=== PATIENT | male | born 1975 | race Caucasian/White ===

== ENCOUNTER 2018-03-25 08:53 | Emergency (ER) | payer OTHER ==
[2018-03-25 09:07] VITALS: RESP 18; O2SAT 98
[2018-03-25] MEDS ORDERED: Sodium Chloride 0.9% 1,000 ML IV ONE (09:36)
[2018-03-25 09:48] LABS: URINE BILIRUBIN NEGATIVE (NEGATIVE); URINE BLOOD NEGATIVE (NEGATIVE); URINE CLARITY Clear (Clear); URINE COLOR Yellow (YELLOW); URINE GLUCOSE (UA) NORMAL (Normal); URINE LEUKOCYTE ESTERASE NEG Leu/uL (Negative); URINE PROTEIN NEGATIVE (NEGATIVE); URINE UROBILINOGEN NORMAL mg/dL (0.2-1.0)
[2018-03-25] MEDS ORDERED: Sodium Chloride 0.9% 1,000 ML ONE (09:49)
[2018-03-25 09:57] LABS: BASO % 0.8 % (0.0-2.0); EOS # 0.1 K/uL (0.0-0.7); HEMOGLOBIN 13.4 g/dL (12.0-18.0); LYMPH # 1.3 K/uL (1.0-4.3); LYMPH % 22.9 % (20.0-40.0); MEAN CELL VOLUME 87.7 fL (80.0-94.0); MEAN CORPUSCULAR HEMOGLOBIN 30.4 pg (27.0-31.0); MEAN CORPUSCULAR HGB CONC 34.6 g/dL (33.0-37.0); MEAN PLATELET VOLUME 7.3 fL (7.2-11.7); MONO # 0.3 K/uL (0.0-0.8); MONO % 5.3 % (0.0-10.0); NEUT # 4.1 K/uL (1.8-7.0); RBC 4.4 Mil/uL (4.40-5.90); RED CELL DISTRIBUTION WIDTH 12.7 % (11.5-14.5); WHITE BLOOD COUNT 5.8 K/uL (4.8-10.8)
[2018-03-25 10:14] LABS: ALB/GLOB RATIO 1.1 (1.0-2.1); ALBUMIN 4.4 g/dL (3.5-5.0); ALT/SGPT 41 U/L (21-72); AST/SGOT 31 U/L (17-59); BLOOD UREA NITROGEN 9 mg/dL (9-20); CALCIUM 9.6 mg/dl (8.6-10.4); GFR AFRICAN-AMERICAN > 60; GFR NON-AFRICAN AMERICAN > 60
--- NOTE | 2018-03-25 10:22 | C.PDOC ---
History Of Present Illness 42 y/o male presents to ED with c/o penile foreskin swelling for 5 days after intercourse. Patient states symptoms first began as skin sticking together and after 2nd intercourse area was involuted and skin was swollen closing urethra. Patient states he is able to urinate but has to force it and reports pain when attempting to retract foreskin. Patient denies fever, chills, abdominal pain, distention or any other complaints at this time. Time Seen by Provider: 03/25/18 09:08 Chief Complaint (Nursing): Male Genitourinary History Per: Patient History/Exam Limitations: no limitations Onset/Duration Of Symptoms: Days Current Symptoms Are (Timing): Still Present Quality Of Discomfort: "Pain" Past Medical History Reviewed: Historical Data, Nursing Documentation, Vital Signs Vital Signs: Last Vital Signs Temp 98.1 F 03/25/18 11:21 Pulse 77 03/25/18 11:21 Resp 18 03/25/18 11:21 BP 120/74 03/25/18 11:21 Pulse Ox 98 03/25/18 12:17 - Medical History PMH: No Chronic Diseases Surgical History: No Surg Hx - [facility] Procedures CLOSURE SKIN & SUBCUTANEOUS NEC (06/14/14) TETANUS TOXOID ADMINIST (06/14/14) Family History: States: No Known Family Hx - Social History Hx Tobacco Use: No Hx Alcohol Use: No Hx Substance Use: No - Immunization History Hx Tetanus Toxoid Vaccination: No Hx Influenza Vaccination: No Hx Pneumococcal Vaccination: No Review Of Systems Constitutional: Negative for: Fever, Chills Gastrointestinal: Negative for: Nausea, Vomiting, Abdominal Pain Genitourinary: Positive for: Penile Pain. Negative for: Hematuria, Penile Discharge Skin: Negative for: Rash Physical Exam - Physical Exam Appears: Non-toxic, No Acute Distress Skin: Warm, Dry, No Rash Head: Atraumatic, Normacephalic Eye(s): bilateral: Normal Inspection Oral Mucosa: Moist Male Genital: No Testicular Tenderness, No Testicular Swelling, No Inguinal Swelling, No Scrotal Swelling, Other (foreskin enveloped over glance, unable to retract. Areas of induration noted. ) Neurological/Psych: Oriented x3, Normal Speech ED Course And Treatment - Laboratory Results Result Diagrams: 03/25/18 09:53 03/25/18 09:53 O2 Sat by Pulse Oximetry: 98 (RA) Pulse Ox Interpretation: Normal Disposition Discussed With : Rayo Ayers Counseled Patient/Family Regarding: Studies Performed, Diagnosis, Need For Followup - Disposition Referrals: Rayo Ayers MD [Staff Provider] - Disposition: HOME/ ROUTINE Disposition Time: 12:17 Condition: STABLE Prescriptions: Ciprofloxacin [Cipro] 1 tab PO BID #14 tab Ibuprofen [Motrin] 600 mg PO TID #15 tab Forms: [facility] (Faroese), Gen Discharge Inst Faroese - POA Present On Arrival: None - Clinical Impression Clinical Impression: Foreskin inflammation - Scribe Statement The provider has reviewed the documentation as recorded by the Scribe Vel Townsend All medical record entries made by the Scribe were at my direction and personally dictated by me. I have reviewed the chart and agree that the record accurately reflects my personal performance of the history, physical exam, medical decision making, and the department course for this patient. I have also personally directed, reviewed, and agree with the discharge instructions and disposition.
[2018-03-25 11:22] VITALS: BP 120/74; PULSE 77; TEMP 98.1
[2018-03-25] MEDS ORDERED: cefTRIAXone IV 1 gm in Dextros 50 ML IVPB ONE ×2 (12:10→12:22)
[2018-03-25] MEDS ORDERED: Ciprofloxacin 400mg/200ml D5W 400 MG/200 ML BAG IVPB STA (12:10)
== END 2018-03-25 13:58 | disposition home or self-care (01) ==
LOC: C.ER 08:53
DX: N48.29 Other inflammatory disorders of penis (principal)
CPT/HCPCS: 80053; 81001; 85025; 87086; 96361; 96365; 96367; 99284; J0696; J0744; J7030

== ENCOUNTER 2018-04-10 16:01 | Emergency (ER) | payer OTHER ==
[2018-04-10 16:29] VITALS: RESP 18
--- NOTE | 2018-04-10 16:43 | C.PDOC ---
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 He reports some bodyaches and malaise. Denies other drug use. Patient also complaints of persistent foreskin swelling and limited full retraction. Patient was seen on 03/20/18 for the same complaint and states she has been calling for a referral "but they don't merchandise pickup/receiving associate or respond". Patient states he is able to urinate without any difficulty. REQUESTING CRYSTAL METH DETOX. LAST USE YEST. BODYACHES, MALAISE. NO OTHER DRUG USE ALSO CO PERSIST FORESKIN SWELLING, LIMITED FULL RETRACTION. SEEN 03/20 FOR SAME BUT STATES HAS BEEN CALLING REFERRAL "BUT THEY DONT TOOL SETTER APPRENTICE OR RESPOND". PS ABLE TO URINATE WO DIFF EXAM MILD DIST PSYCH CALM COOPERATIVE NO ACUTE INTOX, MILD ANXIETY. 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 NO ERYTHEMA, LESIONS, DC REMAINDER NEG Time Seen by Provider: 04/10/18 16:40 Chief Complaint (Nursing): Substance Abuse History Per: Patient History/Exam Limitations: no limitations Onset/Duration Of Symptoms: Days Current Symptoms Are (Timing): Still Present Suicide/Self Injury Attempted (Context): None Involuntary Hold By: None Recent travel outside of the [place]: No Past Medical History Reviewed: Historical Data, Nursing Documentation, Vital Signs Vital Signs: Last Vital Signs Temp 98.4 F 04/10/18 17:01 Pulse 73 04/10/18 17:01 Resp 18 04/10/18 17:01 BP 135/90 04/10/18 17:01 Pulse Ox 98 04/10/18 17:01 - [facility] Procedures CLOSURE SKIN & SUBCUTANEOUS NEC (06/14/14) TETANUS TOXOID ADMINIST (06/14/14) Family History: States: Unknown Family Hx - Social History Hx Tobacco Use: No Hx Alcohol Use: No Hx Substance Use: Yes - Immunization History Hx Tetanus Toxoid Vaccination: No Hx Influenza Vaccination: No Hx Pneumococcal Vaccination: No Review Of Systems Constitutional: Positive for: Malaise, Other (Bodyaches) Genitourinary: Positive for: Other (Foreskin swelling and limited retraction) Physical Exam - Physical Exam Appears: Non-toxic, Other (Mild distress, calm, cooperative, no acute intoxication, mild anxiety. No SI/SA or active psychosis) Skin: Normal Color, Warm, Dry Head: Atraumatic, Normacephalic Eye(s): bilateral: Normal Inspection Oral Mucosa: Moist Chest: Symmetrical, No Tenderness Cardiovascular: Rhythm Regular Respiratory: Normal Breath Sounds, No Rales, No Rhonchi, No Wheezing Gastrointestinal/Abdominal: Soft, No Tenderness Back: No CVA Tenderness Male Genital: Other ( RN Dann loan consultant: Foreskin edema, partial retraction with glans and urethra visualized. No erythema, lesions, or discharge) Neurological/Psych: Oriented x3, Normal Speech ED Course And Treatment ECG: Interpreted By Me ECG Rhythm: Sinus Rhythm ECG Interpretation: Normal Rate From EC O2 Sat by Pulse Oximetry: 96 Pulse Ox Interpretation: Normal Progress - Data Reviewed Data Reviewed: Old records Disposition Counseled Patient/Family Regarding: Diagnosis, Need For Followup - Disposition Referrals: [facility] [Outside] [facility] [Outside] Albino Montalvo MD [Staff Provider] - Disposition: HOME/ ROUTINE Disposition Time: 16:43 Condition: GOOD Instructions: Polysubstance Abuse (DC) Forms: [employer] (Portuguese) - Clinical Impression Clinical Impression: Drug abuse, Foreskin swelling - Scribe Statement The provider has reviewed the documentation as recorded by the Scribe Mike Brennan All medical record entries made by the Scribe were at my direction and personally dictated by me. I have reviewed the chart and agree that the record accurately reflects my personal performance of the history, physical exam, medical decision making, and the department course for this patient. I have also personally directed, reviewed, and agree with the discharge instructions and disposition.
[2018-04-10 17:02] VITALS: BP 135/90; PULSE 73; TEMP 98.4
[2018-04-10 17:34] VITALS: O2SAT 96
--- NOTE | 2018-04-11 19:29 | CARD ---
APPROVED REPORT Date of service: 04/10/2018 EKG Measurement Heart [id number] <Conclusion> Normal sinus rhythm Normal ECG
== END 2018-04-10 17:33 | disposition home or self-care (01) ==
LOC: C.ER 16:01
DX: F19.10 Other psychoactive substance abuse, uncomplicated (principal); N50.89 Other specified disorders of the male genital organs

== ENCOUNTER 2018-06-07 15:49 | Inpatient (IN) | payer OTHER ==
[2018-06-07 16:47] LABS: BASO # 0.1 K/uL (0.0-0.2); BASO % 0.9 % (0.0-2.0); EOS # 0.1 K/uL (0.0-0.7); EOS % 1.5 % (0.0-4.0); HEMOGLOBIN 14.3 g/dL (12.0-18.0); LYMPH # 1.8 K/uL (1.0-4.3); LYMPH % 27.3 % (20.0-40.0); MEAN CORPUSCULAR HEMOGLOBIN 29.3 pg (27.0-31.0); MEAN CORPUSCULAR HGB CONC 34.4 g/dL (33.0-37.0); MEAN PLATELET VOLUME 7.2 fL (7.2-11.7); MONO # 0.5 K/uL (0.0-0.8); MONO % 7.1 % (0.0-10.0); NEUT # 4.2 K/uL (1.8-7.0); NEUT % 63.2 % (50.0-75.0); RBC 4.88 Mil/uL (4.40-5.90); WHITE BLOOD COUNT 6.6 K/uL (4.8-10.8)
[2018-06-07 16:48] LABS: MEAN CELL VOLUME 85.2 fL (80.0-94.0)
[2018-06-07 17:00] LABS: ALB/GLOB RATIO 1.4 (1.0-2.1); ALBUMIN 5.1 g/dL (3.5-5.0); ALT/SGPT 89 U/L (21-72); AST/SGOT 74 U/L (17-59); BLOOD UREA NITROGEN 12 mg/dL (9-20); GFR NON-AFRICAN AMERICAN > 60
[2018-06-07] MEDS ORDERED: Iohexol 300 100 ML IJ ONE (17:18)
--- NOTE | 2018-06-07 17:49 | C.PDOC ---
History Of Present Illness 42 y/o male c/o lump to upper neck that appeared one week ago and is painful, causing pain lower down in his back, pt admits to injecting himself with steroids on occasion. no fevers. denies numbness, tingling, neck stiffness, upper extremity weakness. . Time Seen by Provider: 06/07/18 16:03 Chief Complaint (Nursing): Back Pain History Per: Patient History/Exam Limitations: no limitations Onset/Duration Of Symptoms: Days (7) Current Symptoms Are (Timing): Still Present Quality Of Discomfort: "Pain" Severity: Moderate Past Medical History Reviewed: Historical Data, Nursing Documentation, Vital Signs Vital Signs: Last Vital Signs Temp 98.2 F 06/07/18 16:00 Pulse 76 06/07/18 16:00 Resp 18 06/07/18 16:00 BP 145/83 06/07/18 16:00 Pulse Ox 98 06/07/18 16:00 - Medical History PMH: Depression Other PMH: piror methamphetamine use, uses im steroids - [facility] Procedures CLOSURE SKIN & SUBCUTANEOUS NEC (06/14/14) TETANUS TOXOID ADMINIST (06/14/14) Family History: States: Unknown Family Hx - Social History Hx Tobacco Use: No Hx Alcohol Use: No Hx Substance Use: Yes - Immunization History Hx Tetanus Toxoid Vaccination: No Hx Influenza Vaccination: No Hx Pneumococcal Vaccination: No Review Of Systems Constitutional: Negative for: Fever, Chills Cardiovascular: Negative for: Chest Pain Respiratory: Negative for: Cough, Shortness of Breath Gastrointestinal: Negative for: Vomiting, Abdominal Pain Musculoskeletal: Positive for: Neck Pain, Back Pain Skin: Negative for: Rash, Bruising Neurological: Negative for: Weakness, Numbness Physical Exam - Physical Exam Appears: Non-toxic, No Acute Distress, Other (heavily muscled in upper body and trapzius area. ) Skin: Warm, Dry, Other (approx 5 cm diameter round well circumscribed firm, tender non mobile mass overlying proximal cervical spine. no overlying erythema, no fluctuance. ) Head: Atraumatic, Normacephalic Neck: Normal ROM, No Decreased ROM, Supple, Other (see skin re mass) Respiratory: No Decreased Breath Sounds, No Accessory Muscle Use, No Wheezing Pulses: Right Radial: Normal, Left Femoral: Normal Neurological/Psych: Oriented x3, Normal Speech, Normal Cognition, Normal Motor, Normal Sensation ED Course And Treatment - Laboratory Results Result Diagrams: 06/07/18 16:41 06/07/18 16:41 O2 Sat by Pulse Oximetry: 98 Medical Decision Making Medical Decision Making: pt with firm mass overlying cervical spine with lower back pain- will get labs and ct scan of spine to eval for abscess. 1844 ct scan reports mass on neck consistent with cellulitis, discussed with dr Mikki Bradford, will admit to his service. Disposition Discussed With Dr.: Nila Baldwin Doctor Will See Patient In The: Hospital - Disposition Disposition: HOSPITALIZED Disposition Time: 18:52 Condition: GOOD Forms: [facility] (Amharic) - Clinical Impression Clinical Impression: Low back pain, Cellulitis of neck
--- NOTE | 2018-06-07 18:14 | CT ---
Date of service: 06/07/2018 PROCEDURE: CT Lumbar Spine without contrast HISTORY: Swelling over cervical spinewith back pain COMPARISON: None available. TECHNIQUE: Axial computed tomography images were obtained of the lumbar spine without the use of intravenous contrast. Coronal and sagittal reformatted images were created and reviewed. Radiation dose: Total exam DLP = 1363.62 mGy-cm. This CT exam was performed using one or more of the following dose reduction techniques: Automated exposure control, adjustment of the mA and/or kV according to patient size, and/or use of iterative reconstruction technique. FINDINGS: VERTEBRAE: Unremarkable. No fracture. Normal alignment. DISCS/SPINAL CANAL/NEURAL FORAMINA: The the the there appears to be underlying mild congenital canal stenosis due to short pedicles. L1-2: Unremarkable. L1-L2: Minor posterior disc space narrowing. L2-L3: Mild posterior disc space narrowing.. Small broad-based bulge of the posterior annulus of. Facets are slightly overgrown. Central canal appears mildly narrowed. Exit foramina are adequate.. L3-L4: There is disc space narrowing more so along the posterior disc margin. There is a moderate-sized broad-based disc bulge larger on the right than left with extension into the proximal inferior margins of both exit foramina. The facet joints also hypertrophic.. They changes collectively result in moderate bilateral and central canal stenosis the the exit foramina are marginal. L4-L5: There is disc space narrowing with vacuum disc phenomena, endplate eburnation and small subchondral cystic changes. Prominent asymmetric osteophytic ridge disc complex larger on the right than left with compression of the ventral surface of the thecal sac more so centrally and to the right than left with mild to moderate central canal stenosis as well. Significant right and mild to moderate left-sided lateral recess stenosis. Facets are mildly hypertrophic and flavum are slightly buckled.. Exit foramina are stenotic bilaterally.. L5-S1: There is mild posterior disc space narrowing. No disc herniation or significant disc bulge. Facets are slightly overgrown. Central canal and exit foramina appear adequate. Partial sacralization left-sided L5 vertebral body. No enhancing lesions. PARASPINAL SOFT TISSUES: Paraspinal soft tissues unremarkable. OTHER FINDINGS: Mild wall thickening of the urinary bladder likely due to incomplete distention and muscular hypertrophy however the possibility of a cystitis not excluded. Clinical correlation recommended. IMPRESSION: No acute fractures. 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 No enhancing lesions.
--- NOTE | 2018-06-07 18:27 | CT ---
Date of service: 06/07/2018 PROCEDURE: CT Cervical Spine without contrast HISTORY: Pain lower spine., eval for abscess, COMPARISON: None available. TECHNIQUE: Axial computed tomography images were obtained of the cervical spine without the use of intravenous contrast. Coronal and sagittal reformatted images were created and reviewed. Radiation dose: Total exam DLP = 627.6 mGy-cm. This CT exam was performed using one or more of the following dose reduction techniques: Automated exposure control, adjustment of the mA and/or kV according to patient size, and/or use of iterative reconstruction technique. FINDINGS: VERTEBRAE: No acute compression fractures no retropulsed fragments. Vertebral bodies exhibit normal stature. Vertebral bodies and facets normally aligned. There are no destructive changes seen of the the adjoining endplates. No evidence of abnormal enhancement within the disc spaces or paraspinal soft tissues to suggest discitis/osteomyelitis. DISCS/SPINAL CANAL/NEURAL FORAMINA: Minor multilevel degenerative spondylosis. At the C5-C6 level, there is mild disc space narrowing more so along the posterior disc margin with small osteophytic ridge disc complex that of minimally flattens the ventral surfaces of the thecal sac and spinal cord more so on the right side. The uncovertebral joints are slightly overgrown. Central canal is slightly narrowed as well at this level. Exit foramina appear adequate on the left and mildly narrowed on the right. At the C4-C5 level, there is relatively adequate disc height. Minimal on broad-based bulging of the posterior annulus is present. Facets are slightly overgrown. Central canal appears marginal to adequate. Similar changes are seen at the C3-C4 level. PARASPINAL SOFT TISSUES: There is subcutaneous infiltration and overlying skin thickening within the mid posterior cervical on soft tissues from approximately the C3 through the C7-T1 level. Findings most likely represent a cellulitis. No drainable fluid collections are identified. No evidence of subcutaneous emphysema. OTHER FINDINGS: None. IMPRESSION: There is mild infiltration the mid posterior subcutaneous tissues from these upper cervical through the upper thoracic region with overlying skin thickening. Findings consistent with a cellulitis however no evidence of drainable fluid-abscess collections or subcutaneous emphysema. There is no evidence to suggest discitis/osteomyelitis. Very minor multilevel degenerative spondylosis as detailed above.
[2018-06-07] MEDS ORDERED: Clindamycin 600mg/50ml NS 600 MG/50 ML BAG IVPB ONE (19:01)
[2018-06-07 21:02] LABS: SQUAMOUS EPITHIAL < 1 /hpf (0-5); URINE BILIRUBIN NEGATIVE (NEGATIVE); URINE CLARITY Clear (Clear); URINE COLOR Yellow (YELLOW); URINE GLUCOSE (UA) NORMAL (Normal); URINE LEUKOCYTE ESTERASE NEG Leu/uL (Negative); URINE PROTEIN NEGATIVE (NEGATIVE)
[2018-06-07 21:11] LABS: URINE BLOOD TRACE (NEGATIVE)
[2018-06-07 21:19] LABS: BARBITURATES, UR NEGATIVE (NEGATIVE); BENZODIAZEPINES, UR NEGATIVE (NEGATIVE); OPIATES, UR NEGATIVE (NEGATIVE); PHENCYCLIDINE, UR NEGATIVE (NEGATIVE)
--- NOTE | 2018-06-07 22:24 | CP.PCM.HP ---
Past Patient History - Past Social History Smoking Status: Never Smoked - MUSCULOSKELETAL/RHEUMATOLOGICAL Hx Falls: No - PSYCHIATRIC Hx Depression: Yes Hx Substance Use: Yes - SURGICAL HISTORY Hx Surgeries: No - ANESTHESIA Hx Anesthesia: No Meds Allergies/Adverse Reactions: Allergies Allergy/AdvReac Type Severity Reaction Status Date / Time No Known Allergies Allergy Verified 06/07/18 16:02 Physical Exam - Constitutional Appears: Well - Head Exam Head Exam: ATRAUMATIC, NORMAL INSPECTION, NORMOCEPHALIC - Eye Exam Eye Exam: EOMI, Normal appearance, PERRL Pupil Exam: NORMAL ACCOMODATION, PERRL - ENT Exam ENT Exam: Mucous Membranes Moist, Normal Exam - Neck Exam Neck exam: Positive for: Normal Inspection - Respiratory Exam Respiratory Exam: Decreased Breath Sounds - Cardiovascular Exam Cardiovascular Exam: REGULAR RHYTHM, +S1, +S2 - GI/Abdominal Exam GI & Abdominal Exam: Diminished Bowel Sounds, Soft - Rectal Exam Rectal Exam: Deferred Results - Vital Signs Recent Vital Signs: Last Vital Signs Temp 98.4 F 06/07/18 20:40 Pulse 76 06/07/18 20:40 Resp 20 06/07/18 20:40 BP 130/78 06/07/18 20:40 Pulse Ox 98 06/07/18 20:40 - Labs Result Diagrams: 06/07/18 16:41 06/07/18 16:41 Labs: Laboratory Results - last 24 hr 06/07/18 06/07/18 06/07/18 16:41 16:41 20:44 WBC 6.6 RBC 4.88 Hgb 14.3 Hct 41.5 MCV 85.2 D MCH 29.3 MCHC 34.4 RDW 14.0 Plt Count 352 MPV 7.2 Neut % (Auto) 63.2 Lymph % (Auto) 27.3 [place] % (Auto) 7.1 Eos % (Auto) 1.5 Baso % (Auto) 0.9 Neut # (Auto) 4.2 Lymph # (Auto) 1.8 [place] # (Auto) 0.5 Eos # (Auto) 0.1 Baso # (Auto) 0.1 Sodium 141 Potassium 4.0 Chloride 100 Carbon Dioxide 27 Anion Gap 18 BUN 12 Creatinine 0.8 Est GFR ( Amer) > 60 Est GFR (Non-Af Amer) > 60 Random Glucose 106 Calcium 10.0 Total Bilirubin 0.9 AST 74 H D ALT 89 H D Alkaline Phosphatase 86 Total Protein 8.9 H Albumin 5.1 H Globulin 3.7 Albumin/Globulin Ratio 1.4 Urine Color Urine Clarity Urine pH Ur Specific [place] Urine Protein Urine Glucose (UA) Urine Ketones Urine Blood Urine Nitrate Urine Bilirubin Urine Urobilinogen Ur Leukocyte Esterase Urine WBC (Auto) Urine RBC (Auto) Ur Squamous Epith Cells Urine Opiates Screen Negative Urine Methadone Screen Negative Ur Barbiturates Screen Negative Ur Phencyclidine Scrn Negative Ur Amphetamines Screen Positive H U Benzodiazepines Scrn Negative U Oth Cocaine Metabols Negative U Cannabinoids Screen Negative 06/07/18 20:44 WBC RBC Hgb Hct MCV MCH MCHC RDW Plt Count MPV Neut % (Auto) Lymph % (Auto) [place] % (Auto) Eos % (Auto) Baso % (Auto) Neut # (Auto) Lymph # (Auto) [place] # (Auto) Eos # (Auto) Baso # (Auto) Sodium Potassium Chloride Carbon Dioxide Anion Gap BUN Creatinine Est GFR ( Amer) Est GFR (Non-Af Amer) Random Glucose Calcium Total Bilirubin AST ALT Alkaline Phosphatase Total Protein Albumin Globulin Albumin/Globulin Ratio Urine Color Yellow Urine Clarity Clear Urine pH 6.0 Ur Specific [place] > 1.060 H Urine Protein Negative Urine Glucose (UA) Normal Urine Ketones Negative Urine Blood Trace H Urine Nitrate Negative Urine Bilirubin Negative Urine Urobilinogen 2.0 Ur Leukocyte Esterase Neg Urine WBC (Auto) 4 Urine RBC (Auto) 2 Ur Squamous Epith Cells < 1 Urine Opiates Screen Urine Methadone Screen Ur Barbiturates Screen Ur Phencyclidine Scrn Ur Amphetamines Screen U Benzodiazepines Scrn U Oth Cocaine Metabols U Cannabinoids Screen
[2018-06-08] MEDS: TAZOBACT IVPB SCH ×3 (00:23→16:00)
[2018-06-08] MEDS: PIPERACILLIN IVPB SCH ×3 (00:23→16:00)
[2018-06-08] MEDS: SODIUM CHLORIDE IVPB SCH ×3 (00:23→16:00)
[2018-06-08] MEDS: Multiple Vitamins Tab PO SCH (10:42)
[2018-06-08] MEDS: Enoxaparin 40 mg Syringe SC SCH (10:47)
--- NOTE | 2018-06-08 15:01 | CP.PCM.PN ---
Subjective - Date & Time of Evaluation Date of Evaluation: 06/08/18 Time of Evaluation: 08:15 - Subjective Subjective: clinically same Objective - Vital Signs/Intake and Output Vital Signs (last 24 hours): Temp Pulse Resp BP Pulse Ox 98.5 F 70 20 134/70 97 06/08/18 08:00 06/08/18 08:00 06/08/18 08:00 06/08/18 08:00 06/08/18 08:00 - Medications Medications: Current Medications Enoxaparin Sodium (Lovenox) 40 mg SC DAILY [facility] Last Admin: 06/08/18 10:47 Dose: 40 mg Gabapentin (Neurontin) 100 mg PO TID [facility] Last Admin: 06/08/18 14:18 Dose: 100 mg Vancomycin HCl 1,000 mg/ (Sodium Chloride) 200 mls @ 166.6 mls/hr IVPB Q12H [facility]; Protocol Last Admin: 06/08/18 13:26 Dose: 166.6 mls/hr Piperacillin Sod/Tazobactam (Sod 3.375 gm/ Sodium Chloride) 50 mls @ 200 mls/hr IVPB Q8H [facility]; Protocol Last Admin: 06/08/18 09:57 Dose: 200 mls/hr Multivitamins (Hexavitamin) 1 tab PO DAILY [facility] Last Admin: 06/08/18 10:42 Dose: 1 tab Sertraline HCl (Zoloft) 50 mg PO HS [facility] Last Admin: 06/07/18 22:41 Dose: 50 mg Tramadol HCl (Ultram) 50 mg PO Q6H PRN PRN Reason: Pain, moderate (4-7) Trazodone HCl (Desyrel) 50 mg PO HS [facility] Last Admin: 06/07/18 22:41 Dose: 50 mg Vitamin B Complex/Folic Acid (Berroca) 1 tab PO DAILY [facility] Last Admin: 06/08/18 10:53 Dose: 1 tab - Labs Labs: 06/07/18 16:41 06/07/18 16:41
[2018-06-09] MEDS: PIPERACILLIN IVPB SCH ×3 (00:28→16:01)
[2018-06-09] MEDS: SODIUM CHLORIDE IVPB SCH ×3 (00:28→16:01)
[2018-06-09] MEDS: TAZOBACT IVPB SCH ×3 (00:28→16:01)
[2018-06-09] MEDS: Multiple Vitamins Tab PO SCH (10:26)
[2018-06-09] MEDS: Enoxaparin 40 mg Syringe SC SCH (10:26)
--- NOTE | 2018-06-09 14:19 | CP.PCM.CON ---
History of Present Illness - History of Present Illness History of Present Illness: CONSULTATION DICTATED NECK SWELLING NO SIGN OF CELLULITIS NO SIGN OF RADICULOPATHY OR MYELOPATHY NO WORK UP IS NEEDED FROM NEURO Past Patient History - Past Social History Smoking Status: Never Smoked - MUSCULOSKELETAL/RHEUMATOLOGICAL Hx Falls: No - PSYCHIATRIC Hx Depression: Yes Hx Substance Use: Yes - SURGICAL HISTORY Hx Surgeries: No - ANESTHESIA Hx Anesthesia: No Meds Allergies/Adverse Reactions: Allergies Allergy/AdvReac Type Severity Reaction Status Date / Time No Known Allergies Allergy Verified 06/07/18 16:02 - Medications Medications: Current Medications Enoxaparin Sodium (Lovenox) 40 mg SC DAILY [facility] Last Admin: 06/09/18 10:26 Dose: 40 mg Gabapentin (Neurontin) 100 mg PO TID [facility] Last Admin: 06/09/18 10:26 Dose: 100 mg Vancomycin HCl 1,000 mg/ (Sodium Chloride) 200 mls @ 166.6 mls/hr IVPB Q12H [facility]; Protocol Last Admin: 06/09/18 11:59 Dose: 166.6 mls/hr Piperacillin Sod/Tazobactam (Sod 3.375 gm/ Sodium Chloride) 50 mls @ 200 mls/hr IVPB Q8H [facility]; Protocol Last Admin: 06/09/18 08:03 Dose: 200 mls/hr Influenza Virus Vaccine (Fluzone Quad [id number]) 60 mcg IM .ONCE ONE Stop: 06/10/18 10:01 Multivitamins (Hexavitamin) 1 tab PO DAILY [facility] Last Admin: 06/09/18 10:26 Dose: 1 tab Pneumococcal Polyvalent Vaccine (Pneumovax 23 Vaccine) 0.5 ml IM .ONCE ONE Stop: 06/10/18 10:01 Sertraline HCl (Zoloft) 50 mg PO HS [facility] Last Admin: 06/08/18 21:43 Dose: 50 mg Tramadol HCl (Ultram) 50 mg PO Q6H PRN PRN Reason: Pain, moderate (4-7) Trazodone HCl (Desyrel) 50 mg PO HS [facility] Last Admin: 06/08/18 21:43 Dose: 50 mg Vitamin B Complex/Folic Acid (Berroca) 1 tab PO DAILY [facility] Last Admin: 06/09/18 10:26 Dose: 1 tab Results - Vital Signs Recent Vital Signs: Last Vital Signs Temp 97.7 F 06/09/18 08:41 Pulse 60 06/09/18 08:41 Resp 20 06/09/18 08:41 BP 111/63 06/09/18 08:41 Pulse Ox 96 06/09/18 08:41 - Labs Result Diagrams: 06/07/18 16:41 06/07/18 16:41
--- NOTE | 2018-06-09 15:28 | CP.PCM.CON ---
History of Present Illness - History of Present Illness History of Present Illness: 42 y/o male c/o lump to upper neck that appeared one week ago and is painful, causing pain lower down in his back, pt admits to injecting himself with steroids on occasion. no fevers. denies numbness, tingling, neck stiffness, upper extremity weakness. . Review of Systems - Constitutional Constitutional: As Per HPI - EENT Eyes: absent: As Per HPI, Blind Spots, Blurred Vision, Change in Vision, Decreased Night Vision, Diplopia, Discharge, Dry Eye, Exophthalmos, Floaters, Irritation, Itchy Eyes, Loss of Peripheral Vision, Pain, Photophobia, Requires Corrective Lenses, Sees Flashes, Spots in Vision, Tunnel Vision, Other Visual Disturbances, Loss of Vision, Other Ears: absent: As Per HPI, Decreased Hearing, Ear Discharge, Ear Pain, Tinnitus, Abnormal Hearing, Disequilibrium, Dizziness, Other Nose/Mouth/Throat: absent: As Per HPI, Epistaxis, Nasal Congestion, Nasal Disc harge, Nasal Obstruction, Nasal Trauma, Nose Pain, Post Nasal Drip, Sinus Pain, Sinus Pressure, Bleeding Gums, Change in Voice, Dental Pain, Dry Mouth, Dysphagia, Halitosis, Hoarsness, Lip Swelling, Mouth Lesions, Mouth Pain, Odynophagia, Sore Throat, Throat Swelling, Tongue Swelling, Facial Pain, Neck Pain, Neck Mass, Other - Cardiovascular Cardiovascular: absent: As Per HPI, Acrocyanosis, Chest Pain, Chest Pain at Rest, Chest Pain with Activity, Claudication, Diaphoresis, Dyspnea, Dyspnea on Exertion, Edema, Irregular Heart Rhythm, Pain Radiating to Arm/Neck/Jaw, Leg Edema, Leg Ulcers, Lightheadedness, Orthopnea, Palpitations, Paroxysmal Nocturnal Dyspnea, Pedal Edema, Radiating Pain, Rapid Heart Rate, Slow Heart Rate, Syncope, Other - Respiratory Respiratory: absent: As Per HPI, Cough, Dyspnea, Hemoptysis, Dyspnea on Exertion, Wheezing, Snoring, Stridor, Pain on Inspiration, Chest Congestion, Excessive Mucous Production, Change in Mucous Color, Pain with Coughing, Other - Gastrointestinal Gastrointestinal: absent: As Per HPI, Abdominal Pain, Belching, Bloating, Change in Bowel Habits, Change in Stool Character, Coffee Ground Emesis, Constipation, Cramping, Diarrhea, Dyspepsia, Dysphagia, Early Satiety, Excessive Flatus, Fecal Incontinence, Heartburn, Hematemesis, Hematochezia, Loose Stools, Melena, Nausea, Odynophagia, Temesmus, Vomiting, Other - Genitourinary Genitourinary: absent: As Per HPI, Change in Urinary Stream, Difficulty Urinating, Dysuria, Flank Pain, Hematuria, Pyuria, Nocturia, Urinary Incontinence, Urinary Frequency, Urinary Hesitance, Urinary Urgency, Voiding Freq/Small Amts, Freq UTI, Hx Renal/Bladder Calculi, Hx /Renal Surgery, Bladder Distension, Other - Musculoskeletal Musculoskeletal: absent: As Per HPI, Abnormal Gait, Arthralgias, Atrophy, Back Pain, Deformity, Joint Swelling, Limited Range of Motion, Loss of Height, Muscle Cramps, Muscle Weakness, Myalgias, Neck Pain, Numbness, Radiating Pain into Limb, Stiffness, Tingling, Other - Integumentary Integumentary: absent: As Per HPI, Acne, Alopecia, Bleeding Lesions, Change in Hair, Change in Nails, Change in Pigmentation, Changing Lesions, Dry Skin, Eryth luci, Furuncle, Hirsutism, Lesions, New Lesions, Non-Healing Lesions, Photosensitivity, Pruritus, Rash, Skin Pain, Skin Ulcer, Sores, Striae, Swelling, Unusual Bruising, Wounds, Jaundice, Other - Neurological Neurological: absent: As Per HPI, Abnormal Gait, Abnormal Hearing, Abnormal Movements, Abnormal Speech, Behavioral Changes, Burning Sensations, Confusion, Convulsions, Disequilibrium, Dizziness, Numbness, Focal Weakness, Frequent Falls, Headaches, Lack of Coordination, Loss of Vision, Memory Loss, Paresthesias, Radicular Pain, Restless Legs, Sensory Deficit, Syncope, Tingling, Tremor, Vertigo, Weakness, Other Visual Disturbances, Other - Psychiatric Psychiatric: absent: As Per HPI, Abnormal Sleep Pattern, Anhedonia, Anxiety, Auditory Hallucinations, Behavioral Changes, Change in Appetite, Change in Libido, Confusion, Depression, Difficulty Concentrating, Hallucinations, Homicidal Ideation, Hopelessness, Irritability, Memory Loss, Mood Swings, Panic Attacks, Paranoia, Suicidal Ideation, Visual Hallucinations, Tactile Hallucinations, Other - Endocrine Endocrine: absent: As Per HPI, Change in Body Appearance, Change in Libido, Cold Intolorance, Deepening of Voice, Excessive Sweating, Fatigue, Flushing, Heat Intolorance, Increase in Ring/Shoe/Hat Size, Palpitations, Polydipsia, Polyphagia, Polyuria, Other - Hematologic/Lymphatic Hematologic: absent: As Per HPI, Easy Bleeding, Easy Bruising, Lymphadenopathy, Other Past Patient History - Past Social History Smoking Status: Never Smoked - MUSCULOSKELETAL/RHEUMATOLOGICAL Hx Falls: No - PSYCHIATRIC Hx Depression: Yes Hx Substance Use: Yes - SURGICAL HISTORY Hx Surgeries: No - ANESTHESIA Hx Anesthesia: No Meds Allergies/Adverse Reactions: Allergies Allergy/AdvReac Type Severity Reaction Status Date / Time No Known Allergies Allergy Verified 06/07/18 16:02 - Medications Medications: Current Medications Enoxaparin Sodium (Lovenox) 40 mg SC DAILY [facility] Last Admin: 06/09/18 10:26 Dose: 40 mg Gabapentin (Neurontin) 100 mg PO TID [facility] Last Admin: 06/09/18 14:26 Dose: 100 mg Vancomycin HCl 1,000 mg/ (Sodium Chloride) 200 mls @ 166.6 mls/hr IVPB Q12H [facility]; Protocol Last Admin: 06/09/18 11:59 Dose: 166.6 mls/hr Piperacillin Sod/Tazobactam (Sod 3.375 gm/ Sodium Chloride) 50 mls @ 200 mls/hr IVPB Q8H [facility]; Protocol Last Admin: 06/09/18 08:03 Dose: 200 mls/hr Influenza Virus Vaccine (Fluzone Quad [id number]) 60 mcg IM .ONCE ONE Stop: 06/10/18 10:01 Multivitamins (Hexavitamin) 1 tab PO DAILY [facility] Last Admin: 06/09/18 10:26 Dose: 1 tab Pneumococcal Polyvalent Vaccine (Pneumovax 23 Vaccine) 0.5 ml IM .ONCE ONE Stop: 06/10/18 10:01 Sertraline HCl (Zoloft) 50 mg PO HS [facility] Last Admin: 06/08/18 21:43 Dose: 50 mg Tramadol HCl (Ultram) 50 mg PO Q6H PRN PRN Reason: Pain, moderate (4-7) Trazodone HCl (Desyrel) 50 mg PO HS [facility] Last Admin: 06/08/18 21:43 Dose: 50 mg Vitamin B Complex/Folic Acid (Berroca) 1 tab PO DAILY [facility] Last Admin: 06/09/18 10:26 Dose: 1 tab Physical Exam - Constitutional Appears: Non-toxic, Chronically Ill - Head Exam Head Exam: NORMOCEPHALIC - Eye Exam Eye Exam: absent: Scleral icterus Pupil Exam: NORMAL ACCOMODATION - ENT Exam ENT Exam: Mucous Membranes Dry, TM's Normal Bilaterally Additional comments: large swelling over cervical spine without fluctuance or warmth - Neck Exam Neck exam: Negative for: Lymphadenopathy - Respiratory Exam Respiratory Exam: Decreased Breath Sounds - Cardiovascular Exam Cardiovascular Exam: REGULAR RHYTHM - GI/Abdominal Exam GI & Abdominal Exam: Diminished Bowel Sounds - Rectal Exam Rectal Exam: Deferred - Exam Exam: NORMAL INSPECTION - Extremities Exam Extremities exam: Negative for: pedal edema - Back Exam Back exam: absent: CVA tenderness (L), CVA tenderness (R), paraspinal tenderness - Neurological Exam Neurological exam: Alert, CN II-XII Intact, Oriented x3, Reflexes Normal - Psychiatric Exam Psychiatric exam: Normal Mood - Skin Skin Exam: Dry Results - Vital Signs Recent Vital Signs: Last Vital Signs Temp 97.7 F 06/09/18 08:41 Pulse 60 06/09/18 08:41 Resp 20 06/09/18 08:41 BP 111/63 06/09/18 08:41 Pulse Ox 96 06/09/18 08:41 - Labs Result Diagrams: 06/07/18 16:41 06/07/18 16:41 Assessment & Plan - Assessment and Plan (Free Text) Assessment: large swelling over cervical spine without fluctuance or warmth most likely lipoma recc surgical excision doubt infectious etiology
--- NOTE | 2018-06-09 18:38 | CP.PCM.PN ---
Subjective - Date & Time of Evaluation Date of Evaluation: 06/09/18 Time of Evaluation: 09:00 - Subjective Subjective: clinically same Objective - Vital Signs/Intake and Output Vital Signs (last 24 hours): Temp Pulse Resp BP Pulse Ox 98.8 F 67 20 127/66 98 06/09/18 15:00 06/09/18 15:00 06/09/18 15:00 06/09/18 15:00 06/09/18 15:00 Intake and Output: 06/09/18 06/09/18 06:59 18:59 Intake Total 660 Balance 660 - Medications Medications: Current Medications Enoxaparin Sodium (Lovenox) 40 mg SC DAILY [facility] Last Admin: 06/09/18 10:26 Dose: 40 mg Gabapentin (Neurontin) 100 mg PO TID [facility] Last Admin: 06/09/18 17:53 Dose: 100 mg Piperacillin Sod/Tazobactam (Sod 3.375 gm/ Sodium Chloride) 100 mls @ 200 mls/hr IVPB Q8H [facility]; Protocol Influenza Virus Vaccine (Fluzone Quad [id number]) 60 mcg IM .ONCE ONE Stop: 06/10/18 10:01 Multivitamins (Hexavitamin) 1 tab PO DAILY [facility] Last Admin: 06/09/18 10:26 Dose: 1 tab Pneumococcal Polyvalent Vaccine (Pneumovax 23 Vaccine) 0.5 ml IM .ONCE ONE Stop: 06/10/18 10:01 Sertraline HCl (Zoloft) 50 mg PO [facility] Last Admin: 06/08/18 21:43 Dose: 50 mg Tramadol HCl (Ultram) 50 mg PO Q6H PRN PRN Reason: Pain, moderate (4-7) Trazodone HCl (Desyrel) 50 mg PO [facility] Last Admin: 06/08/18 21:43 Dose: 50 mg Vitamin B Complex/Folic Acid (Berroca) 1 tab PO DAILY [facility] Last Admin: 06/09/18 10:26 Dose: 1 tab - Labs Labs: 06/09/18 17:22 06/07/18 16:41 - Constitutional Appears: Well - Head Exam Head Exam: ATRAUMATIC, NORMAL INSPECTION, NORMOCEPHALIC - Eye Exam Eye Exam: EOMI, Normal appearance, PERRL Pupil Exam: NORMAL ACCOMODATION, PERRL - ENT Exam ENT Exam: Mucous Membranes Moist, Normal Exam - Neck Exam Neck Exam: Full ROM, Normal Inspection. absent: Lymphadenopathy - Respiratory Exam Respiratory Exam: Decreased Breath Sounds - Cardiovascular Exam Cardiovascular Exam: REGULAR RHYTHM, +S1, +S2 - GI/Abdominal Exam GI & Abdominal Exam: Soft, Diminished Bowel Sounds - Rectal Exam Rectal Exam: Deferred
--- NOTE | 2018-06-09 23:55 | CON ---
DATE: 06/09/2018 ATTENDING PHYSICIAN: Ivan Baldwin MD. LOCATION: Room #353, bed B. REASON FOR CONSULTATION: Neck pain. CHIEF COMPLAINT: The patient was brought into [facility] (Formerly [facility]) with history of neck pain for more than a week. From neurological point of view, Colin durand was called in to evaluate him for further management. HISTORY OF PRESENTING ILLNESS: Mr. Chung Avalos is a 42-year-old moderately obese right-handed male presenting with about 1 week history of neck pain which is not radicular in nature. No history of trauma. No history of strain. No association with tingling or numbness sensation to his arms or legs. History of longstanding lower back pain. 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 No history of physical trauma related to his neck pain. PAST MEDICAL HISTORY: Depression, chronic pain syndrome. SOCIAL HISTORY Denies smoking, social drinking. ALLERGIES: NO KNOWN ALLERGIES. REVIEW OF SYSTEMS: A 12-point system being reviewed from neuro, neck pain. PHYSICAL EXAMINATION: VITAL SIGNS: Blood pressure 111/63, mean arterial pressure of 79, respiratory rate 18, temperature 97.7, pulse rate 64 regular. NECK: Supple. No carotid bruits. HEART: Sounds regular. CHEST: Fair air entry. EXTREMITIES: No edema in legs. NEUROLOGIC: Mental status examination, he is awake, alert and oriented to person, place and time. Speech is clear. Naming, repetition, fluency, comprehension all within normal. Cranial nerve examination, visual field intact. Pupils reactive to light. Extraocular movements normal. No nystagmus. No facial or sensory deficit. No facial asymmetry. Hearing is normal. Tongue is midline. Good gag. Motor examination, outstretched hand with eyes closed, no drift noted. Power is symmetric on either side. Strength in the lower extremities also equal on either side. Deep tendon reflexes biceps, brachialis, triceps 0 on both side. Both knees are absent. Both ankles are absent. Plantars are downgoing. Sensory examination, no evidence of dermatomal sensory loss. Coordination, finger-nose test is intact. Gait is normal. Examination of the neck showed C6-C7 region hump noted. No sign of cellulitis. Subcutaneous tissue with mobile lump is noted. Even on a manipulation on palpation, no tenderness noted over the region. Rest of the spine is also normal on palpation. CONCLUSION: As per neurological examination, Mr. Chung Avalos does not have any neurological symptoms related to his neck pain at present. His examination is completely normal at present. No further workup is needed from neuro, the patient can be treated and followed up by neuro, if the patient's present symptoms are persistent. Arnie Staton MD
[2018-06-10] MEDS: Piperacillin/Tazobact 3.375 GM in Sodium Chloride 100 ML IVPB SCH ×3 (00:03→15:55)
[2018-06-10 08:07] LABS: HEPATITIS B SURFACE AG Negative (NEGATIVE)
[2018-06-10 08:13] LABS: HEPATITIS A IGM NEGATIVE (NEGATIVE); HEPATITIS B CORE AB NEGATIVE (NEGATIVE)
[2018-06-10 08:25] LABS: HEPATITIS C ANTIBODY NEGATIVE (NEGATIVE)
[2018-06-10] MEDS: Enoxaparin 40 mg Syringe SC SCH (09:49)
[2018-06-10] MEDS: Multiple Vitamins Tab PO SCH (09:49)
[2018-06-10] MEDS ORDERED: Pneumococcal 23-Valent Vaccine IM ONE (10:00)
[2018-06-10] MEDS ORDERED: Influenza Vaccine 60 MCG/0.5 ML SYR (3 yr & up) IM ONE (10:00)
--- NOTE | 2018-06-10 19:03 | CP.PCM.CON ---
History of Present Illness - History of Present Illness History of Present Illness: General Surgery: Dr Rowley 42M presents with painful inflammation on posterior cervical neck, present for about 4 days. Pt states was not there before, progressively got worse, causing pain that goes down his back. Denies f/c, sob, n/v. Admits to using heavy weights on squat rack without protective padding, likely causing repetitive inflammation to the area. Also admits to recreational steroid injections. No other complaints Review of Systems - Review of Systems All systems: reviewed and no additional remarkable complaints except (as per hpi) Past Patient History - Past Social History Smoking Status: Former Smoker - MUSCULOSKELETAL/RHEUMATOLOGICAL Hx Falls: No - PSYCHIATRIC Hx Depression: Yes Hx Substance Use: Yes - SURGICAL HISTORY Hx Surgeries: No - ANESTHESIA Hx Anesthesia: No Meds Allergies/Adverse Reactions: Allergies Allergy/AdvReac Type Severity Reaction Status Date / Time No Known Allergies Allergy Verified 06/07/18 16:02 - Medications Medications: Current Medications Enoxaparin Sodium (Lovenox) 40 mg SC DAILY [facility] Last Admin: 06/10/18 09:49 Dose: 40 mg Gabapentin (Neurontin) 100 mg PO TID [facility] Last Admin: 06/10/18 17:23 Dose: 100 mg Piperacillin Sod/Tazobactam (Sod 3.375 gm/ Sodium Chloride) 100 mls @ 200 mls/hr IVPB Q8H [facility]; Protocol Last Admin: 06/10/18 15:55 Dose: 200 mls/hr Multivitamins (Hexavitamin) 1 tab PO DAILY [facility] Last Admin: 06/10/18 09:49 Dose: 1 tab Sertraline HCl (Zoloft) 50 mg PO HS [facility] Last Admin: 06/09/18 21:21 Dose: 50 mg Tramadol HCl (Ultram) 50 mg PO Q6H PRN PRN Reason: Pain, moderate (4-7) Trazodone HCl (Desyrel) 50 mg PO HS [facility] Last Admin: 06/09/18 21:21 Dose: 50 mg Vitamin B Complex/Folic Acid (Berroca) 1 tab PO DAILY [facility] Last Admin: 06/10/18 09:49 Dose: 1 tab Physical Exam - Constitutional Appears: Non-toxic - Head Exam Head Exam: NORMAL INSPECTION - Eye Exam Eye Exam: Normal appearance - ENT Exam ENT Exam: Mucous Membranes Moist - Neck Exam Additional comments: large mass in posterior midline, surrounding erythema, no fluctuance - Respiratory Exam Respiratory Exam: absent: Accessory Muscle Use, Respiratory Distress - GI/Abdominal Exam GI & Abdominal Exam: Soft. absent: Tenderness Results - Vital Signs Recent Vital Signs: Last Vital Signs Temp 98.3 F 06/10/18 16:00 Pulse 64 06/10/18 16:00 Resp 20 06/10/18 16:00 BP 139/61 06/10/18 16:00 Pulse Ox 98 06/10/18 16:00 - Labs Result Diagrams: 06/09/18 17:22 06/07/18 16:41 Labs: Laboratory Results - last 24 hr 06/09/18 06/09/18 06/10/18 17:22 17:22 07:47 Cortisol AM Sample 9.9 Hepatitis A IgM Ab Negative Hep Bs Antigen Negative Hep B Core IgM Ab Negative Hepatitis C Antibody Negative HIV 1&2 Antibody Screen Negative Assessment & Plan - Assessment and Plan (Free Text) Assessment: 42M with infected lipoma vs sebaceous cyst vs epidermal inclusion cyst Plan: IV abx preferably removal as outpatient once infection resolves may need I&D if does not improve on abx d/w Dr Halley Benjamin, PGY4
--- NOTE | 2018-06-10 19:06 | CP.PCM.PN ---
Subjective - Date & Time of Evaluation Date of Evaluation: 06/10/18 Time of Evaluation: 09:00 - Subjective Subjective: clinically same Objective - Vital Signs/Intake and Output Vital Signs (last 24 hours): Temp Pulse Resp BP Pulse Ox 98.3 F 64 20 139/61 98 06/10/18 16:00 06/10/18 16:00 06/10/18 16:00 06/10/18 16:00 06/10/18 16:00 Intake and Output: 06/10/18 06/11/18 18:59 06:59 Intake Total 450 Balance 450 - Medications Medications: Current Medications Enoxaparin Sodium (Lovenox) 40 mg SC DAILY [facility] Last Admin: 06/10/18 09:49 Dose: 40 mg Gabapentin (Neurontin) 100 mg PO TID [facility] Last Admin: 06/10/18 17:23 Dose: 100 mg Piperacillin Sod/Tazobactam (Sod 3.375 gm/ Sodium Chloride) 100 mls @ 200 mls/hr IVPB Q8H [facility]; Protocol Last Admin: 06/10/18 15:55 Dose: 200 mls/hr Multivitamins (Hexavitamin) 1 tab PO DAILY [facility] Last Admin: 06/10/18 09:49 Dose: 1 tab Sertraline HCl (Zoloft) 50 mg PO HS [facility] Last Admin: 06/09/18 21:21 Dose: 50 mg Tramadol HCl (Ultram) 50 mg PO Q6H PRN PRN Reason: Pain, moderate (4-7) Trazodone HCl (Desyrel) 50 mg PO HS [facility] Last Admin: 06/09/18 21:21 Dose: 50 mg Vitamin B Complex/Folic Acid (Berroca) 1 tab PO DAILY [facility] Last Admin: 06/10/18 09:49 Dose: 1 tab - Labs Labs: 06/09/18 17:22 06/07/18 16:41
[2018-06-11] MEDS: Piperacillin/Tazobact 3.375 GM in Sodium Chloride 100 ML IVPB SCH ×3 (00:27→16:06)
--- NOTE | 2018-06-11 08:49 | CP.PCM.PN ---
Subjective - Date & Time of Evaluation Date of Evaluation: 06/11/18 Time of Evaluation: 07:00 - Subjective Subjective: Surgery progress note for Dr. Rowley Pt examined at bedside. No acute events overnight. Pt reports pain improved. Denies chest pain, SOB, nausea Objective - Vital Signs/Intake and Output Vital Signs (last 24 hours): Temp Pulse Resp BP Pulse Ox 98.6 F 79 20 110/65 97 06/11/18 07:52 06/11/18 07:52 06/11/18 07:52 06/11/18 07:52 06/11/18 07:52 Intake and Output: 06/11/18 06/11/18 06:59 18:59 Intake Total 730 Balance 730 - Medications Medications: Current Medications Enoxaparin Sodium (Lovenox) 40 mg SC DAILY [facility] Last Admin: 06/10/18 09:49 Dose: 40 mg Gabapentin (Neurontin) 100 mg PO TID [facility] Last Admin: 06/10/18 17:23 Dose: 100 mg Piperacillin Sod/Tazobactam (Sod 3.375 gm/ Sodium Chloride) 100 mls @ 200 mls/hr IVPB Q8H [facility]; Protocol Last Admin: 06/11/18 07:57 Dose: 200 mls/hr Multivitamins (Hexavitamin) 1 tab PO DAILY [facility] Last Admin: 06/10/18 09:49 Dose: 1 tab Sertraline HCl (Zoloft) 50 mg PO HS [facility] Last Admin: 06/10/18 21:47 Dose: 50 mg Tramadol HCl (Ultram) 50 mg PO Q6H PRN PRN Reason: Pain, moderate (4-7) Trazodone HCl (Desyrel) 50 mg PO [facility] Last Admin: 06/10/18 21:47 Dose: 50 mg Vitamin B Complex/Folic Acid (Berroca) 1 tab PO DAILY [facility] Last Admin: 06/10/18 09:49 Dose: 1 tab - Labs Labs: 06/09/18 17:22 06/07/18 16:41 - Constitutional Appears: No Acute Distress - Head Exam Head Exam: ATRAUMATIC, NORMAL INSPECTION, NORMOCEPHALIC - Eye Exam Eye Exam: EOMI, Normal appearance - ENT Exam ENT Exam: Mucous Membranes Moist, Normal Exam - Neck Exam Neck Exam: absent: Tenderness Additional comments: approx 8x8cm posterior cervical mass. Non-TTP, non fluctuant, non-erythematous, no drainage - Respiratory Exam Respiratory Exam: NORMAL BREATHING PATTERN - Cardiovascular Exam Cardiovascular Exam: RRR - GI/Abdominal Exam GI & Abdominal Exam: Soft. absent: Distended, Tenderness - Extremities Exam Extremities Exam: Normal Inspection. absent: Calf Tenderness, Pedal Edema - Neurological Exam Neurological Exam: Alert, Awake, Oriented x3 - Psychiatric Exam Psychiatric exam: Normal Affect, Normal Mood - Skin Skin Exam: Dry, Intact, Normal Color, Warm Assessment and Plan - Assessment and Plan (Free Text) Assessment: 42 year old male with posterior cervical subcutaneous mass with cellulitis--improving Plan: -clinically, patient is improving -afebrile, no leukocytosis -zosyn 3.375g q8 -no surgical intervention recommended at this time; patient stable for discharge on PO Abx per ID, follow up with Dr. Rowley in outpatient clinic -Please re-consult if patient's condition worsens or fails to respond to Abx Will discuss with Dr. Halley Jimenez, PGY-1
[2018-06-11] MEDS: Multiple Vitamins Tab PO SCH (10:25)
[2018-06-11] MEDS: Enoxaparin 40 mg Syringe SC SCH (10:25)
--- NOTE | 2018-06-11 11:53 | CP.PCM.PN ---
Subjective - Date & Time of Evaluation Date of Evaluation: 06/11/18 Time of Evaluation: 08:00 - Subjective Subjective: Pt reports pain improved. Denies chest pain, SOB, nausea Objective - Vital Signs/Intake and Output Vital Signs (last 24 hours): Temp Pulse Resp BP Pulse Ox 98.6 F 79 20 110/65 97 06/11/18 07:52 06/11/18 07:52 06/11/18 07:52 06/11/18 07:52 06/11/18 07:52 Intake and Output: 06/11/18 06/11/18 06:59 18:59 Intake Total 730 Balance 730 - Medications Medications: Current Medications Enoxaparin Sodium (Lovenox) 40 mg SC DAILY [facility] Last Admin: 06/11/18 10:25 Dose: 40 mg Gabapentin (Neurontin) 100 mg PO TID [facility] Last Admin: 06/11/18 10:25 Dose: 100 mg Piperacillin Sod/Tazobactam (Sod 3.375 gm/ Sodium Chloride) 100 mls @ 200 mls/hr IVPB Q8H [facility]; Protocol Last Admin: 06/11/18 07:57 Dose: 200 mls/hr Multivitamins (Hexavitamin) 1 tab PO DAILY [facility] Last Admin: 06/11/18 10:25 Dose: 1 tab Sertraline HCl (Zoloft) 50 mg PO HS [facility] Last Admin: 06/10/18 21:47 Dose: 50 mg Tramadol HCl (Ultram) 50 mg PO Q6H PRN PRN Reason: Pain, moderate (4-7) Trazodone HCl (Desyrel) 50 mg PO HS [facility] Last Admin: 06/10/18 21:47 Dose: 50 mg Vitamin B Complex/Folic Acid (Berroca) 1 tab PO DAILY [facility] Last Admin: 06/11/18 10:25 Dose: 1 tab - Labs Labs: 06/09/18 17:22 06/07/18 16:41
--- NOTE | 2018-06-11 14:26 | CP.PCM.PN ---
Subjective - Date & Time of Evaluation Date of Evaluation: 06/11/18 Time of Evaluation: 08:45 - Subjective Subjective: clinically same Objective - Vital Signs/Intake and Output Vital Signs (last 24 hours): Temp Pulse Resp BP Pulse Ox 98.6 F 79 20 110/65 97 06/11/18 07:52 06/11/18 07:52 06/11/18 07:52 06/11/18 07:52 06/11/18 07:52 Intake and Output: 06/11/18 06/11/18 06:59 18:59 Intake Total 730 Balance 730 - Medications Medications: Current Medications Enoxaparin Sodium (Lovenox) 40 mg SC DAILY [facility] Last Admin: 06/11/18 10:25 Dose: 40 mg Gabapentin (Neurontin) 100 mg PO TID [facility] Last Admin: 06/11/18 13:06 Dose: 100 mg Piperacillin Sod/Tazobactam (Sod 3.375 gm/ Sodium Chloride) 100 mls @ 200 mls/hr IVPB Q8H [facility]; Protocol Last Admin: 06/11/18 07:57 Dose: 200 mls/hr Multivitamins (Hexavitamin) 1 tab PO DAILY [facility] Last Admin: 06/11/18 10:25 Dose: 1 tab Sertraline HCl (Zoloft) 50 mg PO HS [facility] Last Admin: 06/10/18 21:47 Dose: 50 mg Tramadol HCl (Ultram) 50 mg PO Q6H PRN PRN Reason: Pain, moderate (4-7) Trazodone HCl (Desyrel) 50 mg PO HS [facility] Last Admin: 06/10/18 21:47 Dose: 50 mg Vitamin B Complex/Folic Acid (Berroca) 1 tab PO DAILY [facility] Last Admin: 06/11/18 10:25 Dose: 1 tab - Labs Labs: 06/09/18 17:22 06/07/18 16:41
--- NOTE | 2018-06-11 18:07 | RAD ---
HISTORY: pre-operative COMPARISON: None available. TECHNIQUE: Chest, one view. FINDINGS: Examination limited by habitus. LUNGS: No focal consolidation. Please note that chest x-ray has limited sensitivity for the detection of pulmonary masses. PLEURA: No significant pleural effusion identified. No definite pneumothorax . CARDIOVASCULAR: The cardiomediastinal silhouette appears within normal limits of size. No significant atherosclerotic calcification present. OSSEOUS STRUCTURES: No acute osseous abnormality identified. VISUALIZED UPPER ABDOMEN: Unremarkable. OTHER FINDINGS: None. IMPRESSION: No focal consolidation, significant pleural effusion, or definite pneumothorax identified.
[2018-06-12] MEDS: Piperacillin/Tazobact 3.375 GM in Sodium Chloride 100 ML IVPB SCH ×3 (00:25→16:39)
[2018-06-12 07:20] LABS: BASO % 0.7 % (0.0-2.0); EOS # 0.2 K/uL (0.0-0.7); HEMOGLOBIN 13.8 g/dL (12.0-18.0); LYMPH # 1.3 K/uL (1.0-4.3); LYMPH % 25.9 % (20.0-40.0); MEAN CORPUSCULAR HEMOGLOBIN 29.1 pg (27.0-31.0); MEAN CORPUSCULAR HGB CONC 33.5 g/dL (33.0-37.0); MEAN PLATELET VOLUME 7.4 fL (7.2-11.7); MONO # 0.4 K/uL (0.0-0.8); MONO % 7.9 % (0.0-10.0); NEUT # 3.2 K/uL (1.8-7.0); NEUT % 61.5 % (50.0-75.0); NRBC % 0.1 % (0.0-2.0); RBC 4.75 Mil/uL (4.40-5.90); RED CELL DISTRIBUTION WIDTH 14.2 % (11.5-14.5); WHITE BLOOD COUNT 5.2 K/uL (4.8-10.8)
[2018-06-12 07:29] LABS: ALB/GLOB RATIO 1.3 (1.0-2.1); ALBUMIN 4.4 g/dL (3.5-5.0); ALT/SGPT 79 U/L (21-72); AST/SGOT 57 U/L (17-59); BLOOD UREA NITROGEN 14 mg/dL (9-20); CALCIUM 9.7 mg/dl (8.6-10.4); GFR NON-AFRICAN AMERICAN > 60
[2018-06-12 07:34] LABS: INR 1.1; PROTHROMBIN TIME 12.2 SECONDS (9.7-12.2)
[2018-06-12] MEDS: Multiple Vitamins Tab PO SCH (10:24)
[2018-06-12] MEDS ORDERED: Lidocaine/Epinephrine 1% 1:100000 10 ML IJ ONE ×2 (12:53→13:40)
[2018-06-12] MEDS ORDERED: Bupivacaine 0.25% 20 ML INJ IJ ONE ×2 (12:53→13:40)
[2018-06-12] MEDS ORDERED: Midazolam 2 MG/2 ML VIAL ONE (13:20)
[2018-06-12] MEDS ORDERED: Propofol 10 mg/ml Inj (20 ML) ONE ×2 (13:30→14:03)
[2018-06-12] MEDS ORDERED: HYDROmorphone 0.5 mg/0.5 ml ISec IVP PRN (14:15)
--- NOTE | 2018-06-12 15:05 | PCM.SURG1 ---
Surgeon's Initial Post Op Note - Surgeon's Notes Surgeon: Dr. Rowley Investment Consultant: Ivet Carreon, PGY2; Yudelka Anderson OMS3 Pre-Operative Diagnosis: upper back soft tissue mass Operative Findings: large well-defined fibrous mass extending into the muscle approximately 8cm long x 8cm wide x 5cm thick Post-Operative Diagnosis: same Operation Performed: excision of upper back soft tissue mass, complex closure Specimen/Specimens Removed: upper back soft tissue mass Estimated Blood Loss: EBL {In ML}: 15 Date of Surgery/Procedure: 06/12/18 Time of Surgery/Procedure: 13:30
[2018-06-12 15:38] VITALS: O2SAT 98
--- NOTE | 2018-06-12 16:45 | CP.PCM.PN ---
Subjective - Date & Time of Evaluation Date of Evaluation: 06/12/18 Time of Evaluation: 16:30 - Subjective Subjective: [employer] NOTES Patient seen today after the procedure , NAD, denies any complaints, dressing intact to upper back , intact , no bleeding noted patient voids and vss stable s/p excision of upper back soft tissue mass, complex closure D/w president celebrity acquistion, patient can be discharged home today with antibiotics and pain medication and f/u with Dr. Kendall office in 10 days D/W Dr. Aguiar cleared for discharge home otday and f/u with Dr. Mikki Baldwin office in 3 days ( f/u visit) Discharge plan discussed with patient , who understands and agrees with plan Discharge instructions given Patient instructed to returns to ED if any uncontrolled bleeding from ana operative site or any fever Objective - Vital Signs/Intake and Output Vital Signs (last 24 hours): Temp Pulse Resp BP Pulse Ox 97.6 F 63 14 120/64 98 06/12/18 16:00 06/12/18 16:00 06/12/18 16:00 06/12/18 16:00 06/12/18 16:00 Intake and Output: 06/12/18 06/12/18 06:59 18:59 Intake Total 100 650 Balance 100 650 - Medications Medications: Current Medications Enoxaparin Sodium (Lovenox) 40 mg SC DAILY [facility] Last Admin: 06/11/18 10:25 Dose: 40 mg Gabapentin (Neurontin) 100 mg PO TID [facility] Last Admin: 06/12/18 14:32 Dose: Not Given Piperacillin Sod/Tazobactam (Sod 3.375 gm/ Sodium Chloride) 100 mls @ 200 mls/hr IVPB Q8H [facility]; Protocol Last Admin: 06/12/18 16:39 Dose: 200 mls/hr Multivitamins (Hexavitamin) 1 tab PO DAILY [facility] Last Admin: 06/12/18 10:24 Dose: 1 tab Ondansetron HCl (Zofran Inj) 4 mg IVP Q6H PRN PRN Reason: Nausea/Vomiting Sertraline HCl (Zoloft) 50 mg PO HS [facility] Last Admin: 06/11/18 21:16 Dose: 50 mg Tramadol HCl (Ultram) 50 mg PO Q6H PRN PRN Reason: Pain, moderate (4-7) Trazodone HCl (Desyrel) 50 mg PO HS [facility] Last Admin: 06/11/18 21:16 Dose: 50 mg Vitamin B Complex/Folic Acid (Berroca) 1 tab PO DAILY [facility] Last Admin: 06/12/18 10:25 Dose: 1 tab - Labs Labs: 06/12/18 07:09 06/12/18 07:09 PT 12.2 SECONDS (9.7-12.2) 06/12/18 07:09 INR 1.1 06/12/18 07:09 APTT 33 SECONDS (21-34) 06/12/18 07:09
[2018-06-12 18:04] VITALS: BP 124/76; PULSE 65; RESP 20; TEMP 98.5
--- NOTE | 2018-06-12 18:06 | CP.PCM.PN ---
Subjective - Date & Time of Evaluation Date of Evaluation: 06/12/18 Time of Evaluation: 08:30 - Subjective Subjective: clinically same Objective - Vital Signs/Intake and Output Vital Signs (last 24 hours): Temp Pulse Resp BP Pulse Ox 98.5 F 65 20 124/76 98 06/12/18 17:10 06/12/18 17:10 06/12/18 17:10 06/12/18 17:10 06/12/18 17:10 Intake and Output: 06/12/18 06/12/18 06:59 18:59 Intake Total 100 650 Balance 100 650 - Medications Medications: Current Medications Enoxaparin Sodium (Lovenox) 40 mg SC DAILY [facility] Last Admin: 06/11/18 10:25 Dose: 40 mg Gabapentin (Neurontin) 100 mg PO TID [facility] Last Admin: 06/12/18 17:05 Dose: 100 mg Piperacillin Sod/Tazobactam (Sod 3.375 gm/ Sodium Chloride) 100 mls @ 200 mls/hr IVPB Q8H [facility]; Protocol Last Admin: 06/12/18 16:39 Dose: 200 mls/hr Multivitamins (Hexavitamin) 1 tab PO DAILY [facility] Last Admin: 06/12/18 10:24 Dose: 1 tab Ondansetron HCl (Zofran Inj) 4 mg IVP Q6H PRN PRN Reason: Nausea/Vomiting Sertraline HCl (Zoloft) 50 mg PO HS [facility] Last Admin: 06/11/18 21:16 Dose: 50 mg Tramadol HCl (Ultram) 50 mg PO Q6H PRN PRN Reason: Pain, moderate (4-7) Trazodone HCl (Desyrel) 50 mg PO [facility] Last Admin: 06/11/18 21:16 Dose: 50 mg Vitamin B Complex/Folic Acid (Berroca) 1 tab PO DAILY [facility] Last Admin: 06/12/18 10:25 Dose: 1 tab - Labs Labs: 06/12/18 07:09 06/12/18 07:09 PT 12.2 SECONDS (9.7-12.2) 06/12/18 07:09 INR 1.1 06/12/18 07:09 APTT 33 SECONDS (21-34) 06/12/18 07:09 - Constitutional Appears: Well - Head Exam Head Exam: ATRAUMATIC, NORMAL INSPECTION, NORMOCEPHALIC - Eye Exam Eye Exam: EOMI, Normal appearance, PERRL Pupil Exam: NORMAL ACCOMODATION, PERRL - ENT Exam ENT Exam: Mucous Membranes Moist, Normal Exam - Neck Exam Neck Exam: Full ROM, Normal Inspection. absent: Lymphadenopathy - Respiratory Exam Respiratory Exam: Decreased Breath Sounds - Cardiovascular Exam Cardiovascular Exam: REGULAR RHYTHM, +S1, +S2 - GI/Abdominal Exam GI & Abdominal Exam: Soft, Diminished Bowel Sounds - Rectal Exam Rectal Exam: Deferred
--- NOTE | 2018-06-13 07:09 | OP ---
PROCEDURE DATE: 06/12/2018 PREOPERATIVE DIAGNOSES: 1. Large upper back mass. 2. Back pain. POSTOPERATIVE DIAGNOSES: 1. Large upper back mass, approximately 6 x 6 cm. 2. Back pain. PROCEDURES DONE: 1. Excision of a large upper back mass, 6 x 6 cm. 2. Excision of the redundant skin of the upper back, approximately 7 x 4 cm. 3. Layered closure of the wound complex, 7 x 4 x 5 cm. TYPE OF ANESTHESIA: Location anesthesia plus sedation. ESTIMATED BLOOD LOSS: Around 20 mL. DRAINS: None. PATHOLOGY: A large circular upper back mass was sent to the pathology. COMPLICATIONS: None. INTRAOPERATIVE FINDINGS: The patient had approximately 6 x 6 cm large circular mass of the mid upper back and neck area; and due to morbid obesity and due to the excessive redundant skin, the skin flap was excised, and the proper closure of the wound was done to prevent seroma and any deformity of the back. DESCRIPTION OF PROCEDURE: On intraoperative steps, this is a 42-year-old male who was diagnosed with large upper back mass; and the patient was consented for the excision of the mass, possible lipoma, brought to the OR, placed supine on the operating table. After induction of the anesthesia, the upper back was prepped and draped in usual sterile fashion. A local anesthesia was injected surrounding the large back mass as well as the sedation was given. First, a transverse incision was made after incising the skin, subcutaneous tissue. After incising the skin and subcutaneous tissue, the large odd mass was identified, and first, upper and lower flap dissection was done. The dissection was carried down deep up to the underlying muscles and the fascia. The superior, inferior, lateral, and medial dissections were done in order to completely dissect the mass of the surrounding tissue as well the underlying fascia and underlying vertebral column, and after that, the mass was sent off the table for pathology, and after that due to the large cavity and the space, the upper and lower flap was excised in order to refashion the area and to prevent seroma. Approximately 7 x 4 cm skin flap was excised in the subcutaneous tissue, and it was sent off the table for pathology, and now, the wound was closed with multiple layers. The underlying upper and lower flaps were sutured to the underlying fascia, the subcu with 2-0 Vicryl multiple layers, the skin with 4-0 Monocryl, and another layer of the skin with 4-0 Nylon interrupted suture, and dry sterile dressing was applied. The patient tolerated the procedure well. Count of the instrument and gauze was correct. There was no apparent complication. The patient was awoken from sedation. Sent to the Postanesthesia Care Unit in stable condition. Phong Rowley MD
--- NOTE | 2018-06-17 08:25 | CARD ---
APPROVED REPORT Date of service: 06/12/2018 EKG Measurement Heart [id number] <Conclusion> Sinus bradycardia Otherwise normal ECG
== END 2018-06-12 20:11 | disposition home or self-care (01) | DRG 265 ==
LOC: C.ER 15:49 → C.9E 18:48 → C.3T 19:30 → OBSVTOIN 06-10 10:36
PROVIDERS: ADMIT Internal Medicine Nephrology; ATTEND Internal Medicine Nephrology
PROC: 0JB70ZZ Excision of Back Subcutaneous Tissue and Fascia, Open Approach (ICD-10-PCS; principal; 2018-06-12 13:00)
DX: D23.5 Other benign neoplasm of skin of trunk (principal); L03.221 Cellulitis of neck; E66.01 Morbid (severe) obesity due to excess calories; G89.4 Chronic pain syndrome; Z87.891 Personal history of nicotine dependence; D17.1 Benign lipomatous neoplasm of skin and subcutaneous tissue of trunk

== ENCOUNTER 2018-06-25 13:15 | Emergency (ER) | payer OTHER ==
--- NOTE | 2018-06-25 14:16 | C.PDOC ---
History Of Present Illness 43-YEAR-OLD MALE, PRESENTS TO THE EMERGENCY DEPARTMENT WITH COMPLAINTS OF SUBJECTIVE FEVER, AND CLEAR LIQUID COMING FROM POST-OP WOUND (06/12) TO THE TOP OF HIS BACK. PT HAD INCISION OF AN INFECTED SOFT TISSUE MASS. STATES HE HAS BEEN TRYING TO F/U IN DR MILLER OFFICE BUT "THEY WONT CALL BACK." PATIENT CURRENTLY ON AUGMENTIN BUT ONLY TOOK FOUR PILLS. ADDITIONALLY, PT REQUESTING EVALUATION BY CRISIS AND STATES HE WANTS TO RESTART HIS DEPRESSION MEDICATION. HE IS PENDING AN APPOINTMENT 5-6 MONTHS FROM NOW. HE DENIES SI/HI EXAM TOP BACK: SUTURES IN PLACE. 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 Time Seen by Provider: 06/25/18 14:02 Chief Complaint (Nursing): Chest Pain History Per: Patient History/Exam Limitations: no limitations Past Medical History Reviewed: Historical Data, Nursing Documentation, Vital Signs Vital Signs: Last Vital Signs Temp 98.9 F 06/25/18 13:43 Pulse 75 06/25/18 13:43 Resp 18 06/25/18 13:43 BP 127/79 06/25/18 13:43 Pulse Ox 95 06/25/18 13:43 - Medical History PMH: Depression - [facility] Procedures CLOSURE SKIN & SUBCUTANEOUS NEC (06/14/14) EXCISION OF BACK SUBCU/FASCIA, OPEN APPROACH (06/10/18) TETANUS TOXOID ADMINIST (06/14/14) Family History: States: No Known Family Hx - Social History Hx Tobacco Use: No Hx Alcohol Use: No Hx Substance Use: Yes - Immunization History Hx Tetanus Toxoid Vaccination: Yes Hx Influenza Vaccination: No Hx Pneumococcal Vaccination: No Review Of Systems Constitutional: Negative for: Fever Gastrointestinal: Negative for: Nausea, Vomiting Psych: Negative for: Suicidal ideation Physical Exam - Physical Exam Appears: Non-toxic, No Acute Distress Skin: Warm, Dry, Other (TOP BACK: SUTURES IN PLACE. NO ERYTHEMA, WOUND DEHISC, INFECTION) Head: Atraumatic Eye(s): bilateral: Normal Inspection Nose: Normal Oral Mucosa: Moist Lips: Normal Appearing Neck: Normal ROM Cardiovascular: Rhythm Regular, No Murmur Respiratory: Normal Breath Sounds, No Accessory Muscle Use Gastrointestinal/Abdominal: Soft, No Tenderness Extremity: Normal ROM Neurological/Psych: Oriented x3, Normal Speech ED Course And Treatment - Laboratory Results Result Diagrams: 06/25/18 15:04 06/25/18 15:04 O2 Sat by Pulse Oximetry: 95 Pulse Ox Interpretation: Normal (RA) Progress - Re-Evaluation Re-evaluation Note: 06/25/18 14:26 D/W SURG RESIDENT WILL EVAL IN ER 06/25/18 15:10 LABS REQUESTED BY SURG RESIDENT 06/25/18 16:[address] ARCHULETA - Data Reviewed Data Reviewed: Lab, Diagnostic imaging, Old records Disposition Counseled Patient/Family Regarding: Studies Performed, Diagnosis, Need For Followup - Disposition Disposition: HOSPITALIZED Disposition Time: 16:06 Condition: SERIOUS Forms: [employer] (Italian) - POA Present On Arrival: None - Clinical Impression Clinical Impression: Postoperative wound cellulitis - Scribe Statement The provider has reviewed the documentation as recorded by the Scribe (Collins Pham) Provider Attestation: All medical record entries made by the Scribe were at my direction and personally dictated by me. I have reviewed the chart and agree that the record accurately reflects my personal performance of the history, physical exam, medical decision making, and the department course for this patient. I have also personally directed, reviewed, and agree with the discharge instructions and disposition.
[2018-06-25 15:10] LABS: BASO % 0.8 % (0.0-2.0); EOS # 0.2 K/uL (0.0-0.7); EOS % 3.2 % (0.0-4.0); HEMOGLOBIN 12.7 g/dL (12.0-18.0); LYMPH # 1.7 K/uL (1.0-4.3); LYMPH % 31.8 % (20.0-40.0); MEAN CELL VOLUME 87.6 fL (80.0-94.0); MEAN CORPUSCULAR HGB CONC 34.3 g/dL (33.0-37.0); MEAN PLATELET VOLUME 7.8 fL (7.2-11.7); MONO # 0.4 K/uL (0.0-0.8); MONO % 6.9 % (0.0-10.0); NEUT % 57.3 % (50.0-75.0); NRBC % 0.1 % (0.0-2.0); RBC 4.24 Mil/uL (4.40-5.90); RED CELL DISTRIBUTION WIDTH 14.2 % (11.5-14.5); WHITE BLOOD COUNT 5.3 K/uL (4.8-10.8)
[2018-06-25 15:24] LABS: BLOOD UREA NITROGEN 17 mg/dL (9-20); CALCIUM 9.2 mg/dl (8.6-10.4); GFR NON-AFRICAN AMERICAN > 60
--- NOTE | 2018-06-25 15:58 | RAD ---
HISTORY: SOB COMPARISON: Chest x-ray performed 06/11/18 TECHNIQUE: Chest PA and lateral FINDINGS: Examination limited by habitus. LUNGS: No focal consolidation. Please note that chest x-ray has limited sensitivity for the detection of pulmonary masses. PLEURA: No significant pleural effusion identified. No definite pneumothorax . CARDIOVASCULAR: The cardiomediastinal silhouette appears within normal limits of size. No atherosclerotic calcification present. OSSEOUS STRUCTURES: No acute osseous abnormality identified. VISUALIZED UPPER ABDOMEN: Unremarkable. OTHER FINDINGS: None. IMPRESSION: No focal consolidation identified.
[2018-06-25] MEDS ORDERED: Pantoprazole 40 mg EC Tab PO SCH (16:30)
[2018-06-25 16:37] VITALS: BP 126/74; PULSE 65; RESP 17; TEMP 98.5; O2SAT 97
--- NOTE | 2018-06-25 16:48 | CP.PCM.HP ---
<CarreonIvet - Last Filed: 06/25/18 17:19> History of Present Illness - History of Present Illness History of Present Illness: H&P for Dr. 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 Patient states the drainage is serosa nguinous, denies any fevers, numbness, tingling, or weakness in his upper extremities. Patient states that he only took 4 doses of his prescribed antibiotics before stopping because he doesn't like taking medications. Patient has been taking ibuprofen at home for pain. Patient also complains of central chest pain with respirations and diarrhea for 2 days. PMH: depression, anabolic steroid use PSH: excision of fibrolipoma of the posterior neck 06/12/18 ALL: denies Present on Admission - Present on Admission Any Indicators Present on Admission: No Review of Systems - Review of Systems All systems: reviewed and no additional remarkable complaints except (as per HPI) Past Patient History - Past Medical History & Family History Past Medical History?: Yes Past Family History: Reviewed and not pertinent - Past Social History Smoking Status: Never Smoked - MUSCULOSKELETAL/RHEUMATOLOGICAL Hx Falls: No - PSYCHIATRIC Hx Depression: Yes Hx Substance Use: Yes - SURGICAL HISTORY Hx Surgeries: No - ANESTHESIA Hx Anesthesia: No Meds Allergies/Adverse Reactions: Allergies Allergy/AdvReac Type Severity Reaction Status Date / Time No Known Allergies Allergy Verified 06/07/18 16:02 Physical Exam - Constitutional Appears: Well, Non-toxic, No Acute Distress - Head Exam Head Exam: ATRAUMATIC, NORMOCEPHALIC - Eye Exam Eye Exam: Normal appearance. absent: Conjunctival injection, Scleral icterus - ENT Exam ENT Exam: Mucous Membranes Moist, Normal Oropharynx - Neck Exam Additional comments: incision of the posterior neck well healed except for small area of non- adherence in the right lateral pole of the incision, moderate surrounding erythema, small amount of fluctuance over incision, when right lateral pole probed deeply with Q-tip large amount of clear serosanguinous fluid was produced - Respiratory Exam Respiratory Exam: NORMAL BREATHING PATTERN. absent: Accessory Muscle Use, Respiratory Distress - Cardiovascular Exam Cardiovascular Exam: RRR - GI/Abdominal Exam GI & Abdominal Exam: Soft, Tenderness (epigastrium mild tenderness). absent: Distended - Extremities Exam Extremities exam: Positive for: pedal pulses present. Negative for: calf tenderness, pedal edema Additional comments: normal neuromuscular exam - Neurological Exam Neurological exam: Alert, Oriented x3 - Psychiatric Exam Psychiatric exam: Normal Affect, Normal Mood - Skin Skin Exam: Dry, Normal Color, Warm Results - Vital Signs Recent Vital Signs: Last Vital Signs Temp 98.5 F 06/25/18 16:37 Pulse 65 06/25/18 16:37 Resp 17 06/25/18 16:37 BP 126/74 06/25/18 16:37 Pulse Ox 97 06/25/18 16:37 - Labs Result Diagrams: 06/25/18 15:04 06/25/18 15:04 Labs: Laboratory Results - last 24 hr 06/25/18 06/25/18 15:04 15:04 WBC 5.3 RBC 4.24 L Hgb 12.7 Hct 37.1 MCV 87.6 MCH 30.0 MCHC 34.3 RDW 14.2 Plt Count 372 MPV 7.8 Neut % (Auto) 57.3 Lymph % (Auto) 31.8 Wirt % (Auto) 6.9 Eos % (Auto) 3.2 Baso % (Auto) 0.8 Neut # (Auto) 3.0 Lymph # (Auto) 1.7 Wirt # (Auto) 0.4 Eos # (Auto) 0.2 Baso # (Auto) 0.0 Sodium 141 Potassium 4.5 Chloride 103 Carbon Dioxide 26 Anion Gap 17 BUN 17 Creatinine 0.8 Est GFR ( Amer) > 60 Est GFR (Non-Af Amer) > 60 Random Glucose 88 Calcium 9.2 Assessment & Plan - Assessment and Plan (Free Text) Assessment: 43M with post-operative seroma of the posterior neck fibrolipoma excision site, overlying cellulitis Plan: Admit under observation to med/surgery floor Medical consult ID consult F/U wound cultures IV merropenem f/u CBC PRN acetominophen for pain PO protonix SCD's Discussed with Dr. Rowley, who agrees with above Ivet Carreon, [email or web address] <Phong Rowley - Last Filed: 06/29/18 15:07> Results - Vital Signs Recent Vital Signs: Last Vital Signs Temp 98.5 F 06/25/18 16:37 Pulse 65 11/06/18 16:37 Resp 17 06/25/18 16:37 BP 126/74 06/25/18 16:37 Pulse Ox 97 06/25/18 16:37 - Labs Result Diagrams: 06/25/18 15:04 06/25/18 15:04 Attending/Attestation - Attestation I have personally seen and examined this patient.: Yes I have fully participated in the care of the patient.: Yes I have reviewed all pertinent clinical information: Yes Notes (Text): Pt was seen and examined at bedside Agree with above note and assessment Pt with Cellulitis and collection at site of Excision of lipoma Labs and radiology reviewed Ass: Cellulitis s/p Excision of Lipoma of upper back Plan: IV antibitoics Reg diet ID consult Plan d.w pt in detail Risk and benefit explained in detail.
[2018-06-25] MEDS ORDERED: Meropenem 1 GM in Sodium Chloride 0.9% 100 ML IVPB SCH (17:00)
--- NOTE | 2018-06-25 21:31 | CP.PCM.CON ---
Past Patient History - Past Medical History & Family History Past Medical History?: Yes Past Family History: Reviewed and not pertinent - Past Social History Smoking Status: Never Smoked - MUSCULOSKELETAL/RHEUMATOLOGICAL Hx Falls: No - PSYCHIATRIC Hx Depression: Yes Hx Substance Use: Yes - SURGICAL HISTORY Hx Surgeries: No - ANESTHESIA Hx Anesthesia: No Meds Allergies/Adverse Reactions: Allergies Allergy/AdvReac Type Severity Reaction Status Date / Time No Known Allergies Allergy Verified 06/07/18 16:02 - Medications Medications: Current Medications Acetaminophen (Tylenol 325mg Tab) 650 mg PO Q6 PRN PRN Reason: Pain, moderate (4-7) Famotidine (Pepcid) 20 mg PO DAILY [facility] Meropenem 1 gm/ Sodium (Chloride) 100 mls @ 100 mls/hr IVPB Q8H [facility]; Protocol Physical Exam - Constitutional Appears: Well - Head Exam Head Exam: ATRAUMATIC, NORMAL INSPECTION, NORMOCEPHALIC - Eye Exam Eye Exam: EOMI, Normal appearance, PERRL Pupil Exam: NORMAL ACCOMODATION, PERRL - ENT Exam ENT Exam: Mucous Membranes Moist, Normal Exam - Neck Exam Neck exam: Positive for: Normal Inspection - Respiratory Exam Respiratory Exam: Decreased Breath Sounds - Cardiovascular Exam Cardiovascular Exam: REGULAR RHYTHM, +S1, +S2 - GI/Abdominal Exam GI & Abdominal Exam: Diminished Bowel Sounds, Soft - Rectal Exam Rectal Exam: Deferred Results - Vital Signs Recent Vital Signs: Last Vital Signs Temp 98.5 F 06/25/18 16:37 Pulse 65 06/25/18 16:37 Resp 17 06/25/18 16:37 BP 126/74 06/25/18 16:37 Pulse Ox 97 06/25/18 16:37 - Labs Result Diagrams: 06/25/18 15:04 06/25/18 15:04 Labs: Laboratory Results - last 24 hr 06/25/18 06/25/18 15:04 15:04 WBC 5.3 RBC 4.24 L Hgb 12.7 Hct 37.1 MCV 87.6 MCH 30.0 MCHC 34.3 RDW 14.2 Plt Count 372 MPV 7.8 Neut % (Auto) 57.3 Lymph % (Auto) 31.8 [place]field % (Auto) 6.9 Eos % (Auto) 3.2 Baso % (Auto) 0.8 Neut # (Auto) 3.0 Lymph # (Auto) 1.7 [place]field # (Auto) 0.4 Eos # (Auto) 0.2 Baso # (Auto) 0.0 Sodium 141 Potassium 4.5 Chloride 103 Carbon Dioxide 26 Anion Gap 17 BUN 17 Creatinine 0.8 Est GFR ( Amer) > 60 Est GFR (Non-Af Amer) > 60 Random Glucose 88 Calcium 9.2
--- NOTE | 2018-06-28 23:59 | CARD ---
APPROVED REPORT Date of service: 06/25/2018 EKG Measurement Heart [id number] <Conclusion> Normal sinus rhythm Normal ECG
== END 2018-06-25 16:59 | disposition left against medical advice (07) ==
LOC: C.ER 13:15 → C.9E 16:07 → UNDOADMOB 16:07 → C.3T 18:57 → C.9E 18:57 → C.3T 21:52 → C.9E 21:52 → UNDODISOB 21:55
DX: L76.34 Postprocedural seroma of skin and subcutaneous tissue following other procedure (principal); Y84.8 Other medical procedures as the cause of abnormal reaction of the patient, or of later complication, without mention of misadventure at the time of the procedure; Y92.238 Other place in hospital as the place of occurrence of the external cause

== ENCOUNTER 2018-08-09 02:18 | Emergency (ER) | payer OTHER ==
[2018-08-09 02:24] VITALS: O2SAT 97
[2018-08-09] MEDS ORDERED: Sodium Chloride 0.9% 1,000 ML ONE (02:51)
[2018-08-09] MEDS: Sodium Chloride 0.9% 1,000 ML IV ONE (02:54)
[2018-08-09 03:08] LABS: BASO % 0.5 % (0.0-2.0); EOS % 0.3 % (0.0-4.0); HEMOGLOBIN 13.9 g/dL (12.0-18.0); LYMPH # 0.8 K/uL (1.0-4.3); LYMPH % 9.1 % (20.0-40.0); MEAN CELL VOLUME 87.2 fL (80.0-94.0); MEAN CORPUSCULAR HEMOGLOBIN 29.2 pg (27.0-31.0); MEAN CORPUSCULAR HGB CONC 33.5 g/dL (33.0-37.0); MEAN PLATELET VOLUME 7.6 fL (7.2-11.7); MONO # 0.6 K/uL (0.0-0.8); MONO % 6.6 % (0.0-10.0); NEUT # 7.5 K/uL (1.8-7.0); NEUT % 83.5 % (50.0-75.0); PLATELET COUNT 353 K/uL (130-400); RBC 4.75 Mil/uL (4.40-5.90); RED CELL DISTRIBUTION WIDTH 13.8 % (11.5-14.5)
[2018-08-09 03:13] LABS: URINE BACTERIA RARE (<OCC); URINE BILIRUBIN NEGATIVE (NEGATIVE); URINE CLARITY Clear (Clear); URINE COLOR Yellow (YELLOW); URINE GLUCOSE (UA) NORMAL (Normal); URINE LEUKOCYTE ESTERASE TRACE Leu/uL (Negative); URINE PROTEIN NEGATIVE (NEGATIVE); URINE UROBILINOGEN NORMAL mg/dL (0.2-1.0)
[2018-08-09 03:15] LABS: URINE BLOOD 1+ (NEGATIVE)
--- NOTE | 2018-08-09 03:20 | C.PDOC ---
History Of Present Illness 43 year old male presents to the ED c/o lower abdominal pain associated with several episodes of diarrhea since yesterday morning. Patient reports he now has some nausea. Patient denies fever, chills, vomit, back pain, dysuria, hematuria, rash, recent travel, sick contacts. Time Seen by Provider: 08/09/18 02:29 Chief Complaint (Nursing): Abdominal Pain History Per: Patient History/Exam Limitations: no limitations Onset/Duration Of Symptoms: Days Current Symptoms Are (Timing): Still Present Location Of Pain/Discomfort: RLQ, LLQ Quality Of Discomfort: "Pain" Associated Symptoms: Nausea, Diarrhea. denies: Vomiting, Loss Of Appetite, Constipation, Urinary Symptoms Recent travel outside of the [place]: No Additional History Per: Patient Past Medical History Reviewed: Historical Data, Nursing Documentation, Vital Signs Vital Signs: Last Vital Signs Temp 98.1 F 08/09/18 02:22 Pulse 110 H 08/09/18 02:22 Resp 16 08/09/18 02:22 BP 144/78 08/09/18 02:22 Pulse Ox 97 08/09/18 02:22 - Medical History PMH: Depression Surgical History: No Surg Hx - [facility] Procedures CLOSURE SKIN & SUBCUTANEOUS NEC (06/14/14) EXCISION OF BACK SUBCU/FASCIA, OPEN APPROACH (06/10/18) TETANUS TOXOID ADMINIST (06/14/14) Family History: States: Unknown Family Hx - Social History Hx Tobacco Use: No Hx Alcohol Use: No Hx Substance Use: Yes - Immunization History Hx Tetanus Toxoid Vaccination: Yes Hx Influenza Vaccination: No Hx Pneumococcal Vaccination: No Review Of Systems Constitutional: Negative for: Fever, Chills Cardiovascular: Negative for: Chest Pain, Palpitations Respiratory: Negative for: Shortness of Breath Gastrointestinal: Positive for: Nausea, Abdominal Pain, Diarrhea Genitourinary: Negative for: Dysuria, Hematuria Musculoskeletal: Negative for: Back Pain Skin: Negative for: Rash Neurological: Negative for: Weakness, Numbness Physical Exam - Physical Exam Appears: Non-toxic, No Acute Distress Skin: Normal Color, Warm, Dry Head: Atraumatic, Normacephalic Eye(s): bilateral: Normal Inspection Oral Mucosa: Moist Neck: Normal ROM, Supple Chest: Symmetrical Cardiovascular: Rhythm Regular Respiratory: Normal Breath Sounds, No Rales, No Rhonchi, No Wheezing Gastrointestinal/Abdominal: Soft, Tenderness (minimal bilateral lower quadrants), No Guarding, No Rebound Back: No CVA Tenderness Extremity: Normal ROM, No Tenderness, No Swelling Neurological/Psych: Oriented x3, Normal Speech, Normal Cognition Gait: Steady ED Course And Treatment - Laboratory Results Result Diagrams: 08/09/18 03:05 08/09/18 03:05 O2 Sat by Pulse Oximetry: 97 (ON RA) Pulse Ox Interpretation: Normal Progress Note: Plan: - Labs. - IV fluids. - Toradol 30 mg IVP. - Zofran 4 mg IVP. - UA. Patient states he feel better after medications, patient is seen playing on his phone while in the ED. Patient was advised to follow up with PMD and educated on proper diet.Return precautions d/w pt and understood Disposition Counseled Patient/Family Regarding: Diagnosis, Need For Followup - Disposition Referrals: [facility] [Outside] Disposition: HOME/ ROUTINE Disposition Time: 04:06 Condition: STABLE Additional Instructions: Decrease Dairy, solid foods, greasy foods BRAT diet ( BANANAS, RICE, TOAST, APPLES, Apple sauces) Drink plaenty of fluids, gatorade, gingerale Return to ER if worse Instructions: Viral Gastroenteritis, Adult (DC) Forms: [employer] (Romansh) - Clinical Impression Clinical Impression: Abdominal pain, Diarrhea - PA / CONSTRUCTION PROJECT ADMINISTRATOR / Resident Statement MD/DO has reviewed & agrees with the documentation as recorded. - Scribe Statement The provider has reviewed the documentation as recorded by the Scribe Federico Quan All medical record entries made by the Scribe were at my direction and personally dictated by me. I have reviewed the chart and agree that the record accurately reflects my personal performance of the history, physical exam, medical decision making, and the department course for this patient. I have also personally directed, reviewed, and agree with the discharge instructions and disposition.
[2018-08-09 03:24] LABS: ALB/GLOB RATIO 1.3 (1.0-2.1); ALBUMIN 4.7 g/dL (3.5-5.0); BLOOD UREA NITROGEN 15 mg/dL (9-20); CALCIUM 8.9 mg/dl (8.6-10.4); GFR NON-AFRICAN AMERICAN > 60; LIPASE 145 U/L (23-300)
[2018-08-09 03:29] LABS: ALT/SGPT 66 U/L (21-72); AST/SGOT 61 U/L (17-59)
[2018-08-09 04:21] LABS: BANDS 2 % (0-2); LYMPHOCYTE 8 % (20-40); MONOCYTE 5 % (0-10); NEUTROPHIL 85 % (50-75); PLATELET ESTIMATE NORMAL (NORMAL); TOTAL CELLS COUNTED 100
[2018-08-09 04:22] VITALS: BP 111/65; PULSE 87; RESP 20; TEMP 99
== END 2018-08-09 04:23 | disposition home or self-care (01) ==
LOC: C.ER 02:18
DX: R10.30 Lower abdominal pain, unspecified (principal); R19.7 Diarrhea, unspecified
CPT/HCPCS: 80053; 81001; 83690; 85025; 96361; 96374; 96375; 99284; J1885; J2405; J7030

== ENCOUNTER 2018-08-09 18:31 | Emergency (ER) | payer OTHER ==
[2018-08-09 18:45] VITALS: BMI 28.8
[2018-08-09 18:49] VITALS: RESP 18
[2018-08-09] MEDS ORDERED: Sodium Chloride 0.9% 1,000 ML IV ONE (19:15)
[2018-08-09] MEDS ORDERED: Sodium Chloride 0.9% 1,000 ML ONE (19:38)
[2018-08-09 19:40] LABS: BASO % 0.4 % (0.0-2.0); EOS # 0.1 K/uL (0.0-0.7); EOS % 1.5 % (0.0-4.0); HEMOGLOBIN 13.1 g/dL (12.0-18.0); LYMPH # 1.2 K/uL (1.0-4.3); LYMPH % 17.1 % (20.0-40.0); MEAN CORPUSCULAR HEMOGLOBIN 28.9 pg (27.0-31.0); MEAN CORPUSCULAR HGB CONC 33.3 g/dL (33.0-37.0); MEAN PLATELET VOLUME 7.2 fL (7.2-11.7); MONO # 0.5 K/uL (0.0-0.8); MONO % 7.1 % (0.0-10.0); NEUT # 5.3 K/uL (1.8-7.0); NEUT % 73.9 % (50.0-75.0); RBC 4.53 Mil/uL (4.40-5.90); WHITE BLOOD COUNT 7.1 K/uL (4.8-10.8)
[2018-08-09 19:54] LABS: URINE BACTERIA RARE (<OCC); URINE BILIRUBIN NEGATIVE (NEGATIVE); URINE BLOOD 1+ (NEGATIVE); URINE CLARITY Clear (Clear); URINE COLOR Yellow (YELLOW); URINE GLUCOSE (UA) NORMAL (Normal); URINE LEUKOCYTE ESTERASE NEG Leu/uL (Negative); URINE PROTEIN NEGATIVE (NEGATIVE)
[2018-08-09 19:58] LABS: ALB/GLOB RATIO 1.2 (1.0-2.1); ALBUMIN 4.1 g/dL (3.5-5.0); ALT/SGPT 58 U/L (21-72); AST/SGOT 44 U/L (17-59); BLOOD UREA NITROGEN 11 mg/dL (9-20); CALCIUM 8.4 mg/dl (8.6-10.4); GFR NON-AFRICAN AMERICAN > 60; LIPASE 134 U/L (23-300)
[2018-08-09] MEDS ORDERED: Iohexol 300 100 ML IJ ONE (20:09)
[2018-08-09 21:08] VITALS: BP 97/57; PULSE 67; TEMP 99.8; O2SAT 98
--- NOTE | 2018-08-09 22:12 | C.PDOC ---
History Of Present Illness 43 y/o male pt with hx of hemorrhoids presents to the ER c/o mild lower abdominal pain for a couple of days. Associated sx includes episodes of bright red blood spotting in the rectum. Pt notes his last colonoscopy was 7 years ago. Pt denies fever, chills, nausea, vomiting, change in appetite, chest pain, cough, dysuria, hematuria, back pain, weakness, testicular pain or penile discharge. Chief Complaint (Nursing): Abdominal Pain History Per: Patient History/Exam Limitations: no limitations Onset/Duration Of Symptoms: Days Current Symptoms Are (Timing): Still Present Past Medical History Reviewed: Historical Data, Nursing Documentation, Vital Signs Vital Signs: Last Vital Signs Temp 99.8 F H 08/09/18 21:07 Pulse 67 08/09/18 21:07 Resp 18 08/09/18 21:07 BP 97/57 L 08/09/18 21:07 Pulse Ox 98 08/09/18 21:07 - Medical History PMH: Depression - [facility] Procedures CLOSURE SKIN & SUBCUTANEOUS NEC (06/14/14) EXCISION OF BACK SUBCU/FASCIA, OPEN APPROACH (06/10/18) TETANUS TOXOID ADMINIST (06/14/14) Family History: States: Unknown Family Hx - Social History Hx Tobacco Use: No Hx Alcohol Use: No Hx Substance Use: Yes - Immunization History Hx Tetanus Toxoid Vaccination: Yes Hx Influenza Vaccination: No Hx Pneumococcal Vaccination: No Review Of Systems Except As Marked, All Systems Reviewed And Found Negative. Constitutional: Negative for: Fever, Chills, Other (change in appetite ) Cardiovascular: Negative for: Chest Pain Respiratory: Negative for: Cough Gastrointestinal: Positive for: Abdominal Pain (low). Negative for: Nausea, Vomiting Genitourinary: Negative for: Dysuria, Hematuria, Penile Discharge, Penile Pain Musculoskeletal: Negative for: Back Pain Neurological: Negative for: Weakness Physical Exam - Physical Exam Appears: Non-toxic, No Acute Distress Skin: Warm, Dry Head: Normacephalic Eye(s): bilateral: Normal Inspection, EOMI Chest: Symmetrical Cardiovascular: Rhythm Regular Respiratory: Normal Breath Sounds Gastrointestinal/Abdominal: Soft, Tenderness (mild left low), No Distention, No Guarding, No Rebound Back: No CVA Tenderness Extremity: Normal ROM (x4) Neurological/Psych: Oriented x3, Normal Speech ED Course And Treatment - Laboratory Results Result Diagrams: 08/09/18 19:37 08/09/18 19:37 O2 Sat by Pulse Oximetry: 98 (RA) Pulse Ox Interpretation: Normal Medical Decision Making Medical Decision Making: Impression: abdominal pain Plans: -- CT abd and pelvis -- chem labs -- blood work -- IV fluids -- Toradol -- urine cx -- UA CT Abd&pelvis results: Name: RALPH PORTILLO Exam Date: Aug 09, 2018 8:20:46 PM EST Modality Type: CT Description: CT - ABDOMEN AND PELVIS Gender: M Laterality: Not applicable : 77 Referring Physician: Geoff Lima (DO) EXAM: CT Abdomen with IV contrast CLINICAL HISTORY: Llq tenderness, periumbilical pain TECHNIQUE: Axial computed tomography images of the abdomen and pelvis with intravenous contrast. 890 DLP CONTRAST: With; OMNI 300/100ML COMPARISON: None provided. FINDINGS: LUNG BASES: The heart is normal in size. The pulmonary bases are well aerated. This space narrowing at L4-L5. LIVER: Unremarkable. GALLBLADDER AND BILE DUCTS: The gallbladder appears within normal limits. No radioopaque gallstones are seen. No biliary ductal dilatation is evident. PANCREAS: Unremarkable. SPLEEN: innumerable tiny calcifications suggestive of prior granulomatous disease. ADRENAL GLANDS: Unremarkable. KIDNEYS, URETERS, AND BLADDER: The kidneys appear within normal limits. There is no hydronephrosis or hydroureter. No urinary calculi are seen. STOMACH AND BOWEL: Unremarkable appearance of the stomach and bowel. No evidence of bowel obstruction. No evidence suggesting enteritis or colitis. APPENDIX: The intestinal pattern is nonobstructive. The appendix is visualized and is noninflammatory. No evidence of acute diverticulitis. PERITONEUM: No free fluid. No free air. LYMPH NODES: No lymphadenopathy is evident. VASCULATURE: No evidence of abdominal aortic aneurysm. BONES: No aggressive appearing osseous lesion. No acute osseous pathology evident. MISCELLANEOUS: No free pelvic fluid. Prostate normal in size but contains several central calcifications. IMPRESSION: 1. The intestinal pattern is nonobstructive. The appendix is visualized and is noninflammatory. No evidence of acute diverticulitis. 2. No free pelvic fluid. 3. Prostate normal in size but contains several central calcifications. 4. The heart is normal in size. The pulmonary bases are well aerated. This space narrowing at L4-L5. Electronically signed on Aug 09, 2018 8:38:58 PM EST by: Mac River M.D., Certified by [facility] Reassess: Patient is resting comfortably, abdomen remains soft, and patient is tolerating PO. Patient feels comfortable going home. Patient will be discharged home. Disposition - Disposition Referrals: [facility] Gertrudis Isadoranona, [Non-Staff] - Disposition: HOME/ ROUTINE Disposition Time: 20:45 Condition: GOOD Additional Instructions: RALPH PORTILLO, thank you for letting us take care of you today. The emergency medical care you received today was directed at your acute symptoms. If you were prescribed any medication, please fill it and take as directed. It may take several days for your symptoms to resolve. Return to the Emergency Department if your symptoms worsen, do not improve, or if you have any other problems. Please contact your doctor or call one of the physicians/clinics you have been referred to that are listed on the Patient Visit Information form that is included in your discharge packet. Bring any paperwork you were given at discharge with you along with any medications you are taking to your follow up visit. Our treatment cannot replace ongoing medical care by a primary care provider outside of the emergency department. Thank you for allowing the [facility] team to be part of your care today. Follow up with your primary care doctor next week for re-evaluation and further management. Prescriptions: Ibuprofen [Motrin] 600 mg PO Q6 PRN #20 tab PRN Reason: Pain, Moderate (4-7) Instructions: Acute Abdomen (Belly Pain), Adult (DC) Forms: [employer] (Bulgarian) - Clinical Impression Clinical Impression: Abdominal pain - Scribe Statement The provider has reviewed the documentation as recorded by the Scribe Tuttle Do Provider Attestation: All medical record entries made by the Scribe were at my direction and personally dictated by me. I have reviewed the chart and agree that the record accurately reflects my personal performance of the history, physical exam, medical decision making, and the department course for this patient. I have also personally directed, reviewed, and agree with the discharge instructions and disposition.
--- NOTE | 2018-08-10 15:48 | CT ---
Date of service: 08/09/2018 PROCEDURE: CT Abdomen and Pelvis with contrast HISTORY: LLQ tenderness COMPARISON: None. TECHNIQUE: Contrast dose: 100 mL Omnipaque 3 Mcqueen Radiation dose: Total exam DLP = 890.06 mGy-cm. This CT exam was performed using one or more of the following dose reduction techniques: Automated exposure control, adjustment of the mA and/or kV according to patient size, and/or use of iterative reconstruction technique. FINDINGS: LOWER THORAX: No infiltrate/effusion. Mild bilateral gynecomastia. LIVER: Hepatomegaly. The liver measures approximately 25 cm craniocaudal. Diffusely diminished attenuation of the liver consistent with fatty infiltration. Smooth contour. No mass. No biliary ductal dilatation. GALLBLADDER AND BILE DUCTS: Partially contracted. No calcified gallstones. No mural thickening. PANCREAS: Unremarkable. No gross lesion or ductal dilatation. SPLEEN: Normal size. No mass. Numerous punctate calcifications consistent with old granulomatous disease. ADRENALS: Unremarkable. No mass. KIDNEYS AND URETERS: Unremarkable. No hydronephrosis. No solid mass. VASCULATURE: Unremarkable. No aortic aneurysm. No aortic atherosclerotic calcification or mural plaque present. BOWEL: Mural thickening of the distal descending/sigmoid junction and of the rectum, consistent with nonspecific colitis. There is stranding of the fat about the region of the junction of the distal descending and sigmoid colon but no stranding of the perirectal fat. No bowel obstruction. No other abnormal bowel loops are appreciated. APPENDIX: Normal appendix. PERITONEUM: Unremarkable. No free fluid. No free air. LYMPH NODES: Unremarkable. No enlarged lymph nodes. BLADDER: Nondistended REPRODUCTIVE: Normal prostate BONES: No acute fracture. OTHER FINDINGS: None. IMPRESSION: Findings consistent with nonspecific colitis involving the segment at the distal descending/sigmoid junction and the entire rectum. Consider infectious or inflammatory etiology such as Crohn's disease. The preliminary findings for this examination were reported by [facility] at 8:38 p.m. on 08/09/2018. There is concurrence of this report with the preliminary findings. Findings were discussed by telephone with Dr. Laguerre at 3:40 p.m. on 08/10/2018.
== END 2018-08-09 21:16 | disposition home or self-care (01) ==
LOC: C.ER 18:31
DX: R10.30 Lower abdominal pain, unspecified (principal)
CPT/HCPCS: 74177; 80053; 81001; 83690; 85025; 87086; 96361; 96374; 99284; J1885; J7030; Q9967